=== PATIENT | female | born 1930 | race Caucasian/White ===

== ENCOUNTER 2016-08-03 00:10 | Emergency (ER) | payer MEDICARE, MEDICAID ==
--- NOTE | 2016-08-03 00:42 | ED ---
Nette Jamison Rebecca, scribed for Michael See MD on 08/03/16 at 0018 . Syncope/Near Syncope - HPI Summary HPI Summary: Pt is an 85 y/o F BIBA who presents to ED s/p near syncopal episode. Pt was in the bathroom at 2345 tonight, when suddenly she states she "just didn't feel like my normal self" and proceeded to lay herself on the floor. Reports that her sx are improving from onset. Sx aggravated by nothing, alleviated by spontaneous resolution. Additionally c/o diaphoresis. Denies LOC. Episode was witnessed, as she was with an assistant oceanographer. Pt is a resident at [facility]. PMHx dementia. - History Of Current Complaint Time Seen by Provider: 08/03/16 00:16 Hx Obtained From: Patient, EMS Onset/Duration: Sudden Onset Context: Witnessed Activity At Onset: Other - Urinating Aggravating Factor(s): Nothing Alleviating Factor(s): Spontaneous Resolution Associated Signs And Symptoms: Diaphoresis - Allergies/Home Medications Allergies/Adverse Reactions: Allergies Allergy/AdvReac Type Severity Reaction Status Date / Time Penicillins [PCN] Allergy Severe Rash Verified 04/01/14 21:36 PMH/Surg Hx/FS Hx/Imm Hx Endocrine/Hematology History: Reports: Hx Thyroid Disease Denies: Hx Diabetes Cardiovascular History: Reports: Hx Aneurysm - Sm fusiform aortic [id number] , Hx Hypertension Denies: Hx Congestive Heart Failure, Other Cardiovascular Problems/Disorders Respiratory History: Denies: Other Respiratory Problems/Disorders GI History: Denies: Other GI Disorders History: Denies: Hx Renal Disease, Other Problems/Disorders Neurological History: Reports: Hx Dementia, Hx Headaches Psychiatric History: Reports: Hx Depression Infectious Disease History: No Infectious Disease History: Denies: Traveled Outside the [place] in Last 30 Days - Family History Known Family History: Positive: Cardiac Disease - Social History Alcohol Use: None Substance Use Type: Reports: None Smoking Status (MU): Never Smoked Tobacco Review of Systems Positive: Skin Diaphoresis Positive: Syncope - Near syncopal episode; Negative LOC All Other Systems Reviewed And Are Negative: Yes Physical Exam Triage Information Reviewed: Yes Vital Signs On Initial Exam: Initial Vitals Temp Pulse Resp BP Pulse Ox 98.0 F 66 16 159/66 96 08/03/16 00:15 08/03/16 00:15 08/03/16 00:15 08/03/16 00:15 08/03/16 00:15 Vital Signs Reviewed: Yes Completion Of Physical Exam Limited Due To: Dementia Appearance: Positive: No Pain Distress Skin: Positive: Warm Eyes: Positive: FAUZIA ENT: Positive: Hearing grossly normal Neck: Positive: Supple Respiratory/Lung Sounds: Positive: Clear to Auscultation, Breath Sounds Present Cardiovascular: Positive: RRR Abdomen Description: Positive: Nontender, Soft Bowel Sounds: Positive: Present Musculoskeletal: Positive: Strength/ROM Intact Neurological: Positive: Sensory/Motor Intact Diagnostics - Vital Signs Vital Signs Temp Pulse Resp BP Pulse Ox 08/03/16 00:15 98.0 F 66 16 159/66 96 - Laboratory Result Diagrams: 08/03/16 00:40 08/03/16 00:40 Lab Statement: Any lab studies that have been ordered have been reviewed, and results considered in the medical decision making process. - EKG 0025 Cardiac Rate: NL - 65 bpm EKG Rhythm: Sinus Rhythm ST Segment: Non-Specific - Non-specific T abnormality Course/Dx Assessment/Plan: Pt is an 85 y/o F BIBA who presents to ED s/p near syncopal episode at 2345 tonight. Denies LOC. EKG reveals non-specific T wave abnormalities. Pt will be d/c with a dx of UTI. - Diagnoses Provider Diagnoses: UTI (urinary tract infection) Discharge - Discharge Plan Condition: Stable Disposition: [facility] Prescriptions: Ciprofloxacin TAB* [Cipro Tab*] 250 mg PO BID #14 tab Patient Education Materials: Urinary Tract Infection in Women (ED), Ciprofloxacin (By mouth) Additional Instructions: Recommends Cipro 250 mg 2x per day to treat UTI. The documentation as recorded by the Nette hays Rebecca accurately reflects the service I personally performed and the decisions made by , Michael See MD.
[2016-08-03 00:59] LABS: Hematocrit 40 % (35-47); Hemoglobin 12.9 g/dl (12.0-16.0); Mean Corpuscular HGB Conc 32 g/dl (31-36); Mean Corpuscular Hemoglobin 29 pg (27-31); Mean Corpuscular Volume 90 fL (80-97); Mean Platelet Volume 9 um3 (7.4-10.4); Red Blood Count 4.47 10^6/ul (4.0-5.4); Red Cell Distribution Width 14 % (10.5-15); White Blood Count 12.4 10^3/ul (3.5-10.8)
[2016-08-03 01:15] LABS: ALT 12 U/L (7-52); Albumin 3.9 g/dL (3.2-5.2); Alkaline Phosphatase 35 U/L (34-104); Anion Gap 3 mmol/L (2-11); BUN/Creatinine Ratio 25.7 (8-20); Blood Urea Nitrogen 19 mg/dL (6-24); CO2 Carbon Dioxide 22 mmol/L (22-32); Calcium 8.7 mg/dL (8.6-10.3); Chloride 107 mmol/L (101-111); EGFR African American 95.5 (>60); EGFR Non-African American 74.2 (>60); Globulin 3.9 g/dL (2-4); Glucose 102 mg/dL (70-100); Sodium 132 mmol/L (133-145); Total Protein 7.8 g/dL (6.4-8.9)
[2016-08-03 01:37] LABS: Urine Bacteria 1+ (Absent); Urine Bilirubin Negative (Negative); Urine Glucose Negative (Negative); Urine Nitrite Positive (Negative)
[2016-08-03] MEDS ORDERED: Ciprofloxacin TAB* 250 MG PO ONE (01:42)
[2016-08-03 02:25] VITALS: BP 100/75
--- NOTE | 2016-08-05 08:15 | ED ---
Progress - Progress Note Progress Note: Pt's prelim urine cx reveals e. coli - she was d/c'd on cipro which is appropriate at this time. Will review final cx w/ sens to decide if med change is necessary. Course/Dx - Diagnoses Provider Diagnoses: UTI (urinary tract infection)
--- NOTE | 2016-08-06 07:51 | PN ---
Progress Note - Progress Note Note: Patient d/c on Cipro which is appropriate according to sensitivities.
== END 2016-08-03 02:06 ==
LOC: ED 00:10
DX: N39.0 Urinary tract infection, site not specified (principal); R55 Syncope and collapse; R61 Generalized hyperhidrosis; Z86.59 Personal history of other mental and behavioral disorders
CPT/HCPCS: 36415; 80053; 81003; 81015; 85025; 87077; 87086; 87186; 93005; 99283; A9270-GY

== ENCOUNTER 2016-09-17 13:53 | Inpatient (IN) | payer MEDICARE, MEDICAID ==
[2016-09-17] MEDS ORDERED: NS 0.9% 1000 ML* 2,000 ML IV ONE (14:39)
--- NOTE | 2016-09-17 15:08 | RAD ---
Indication: Fever, weakness and cough. Single frontal view of the chest performed at 1451 hours was reviewed. Comparison is made with previous exam dated January 03, 2013. No mediastinal shift is noted. Heart is of normal size and configuration. Lung bush appear clear. IMPRESSION: NO ACTIVE CARDIOPULMONARY DISEASE IS NOTED.
[2016-09-17 15:14] LABS: Hematocrit 38 % (35-47); Hemoglobin 12.5 g/dl (12.0-16.0); Mean Corpuscular HGB Conc 33 g/dl (31-36); Mean Corpuscular Hemoglobin 29 pg (27-31); Mean Corpuscular Volume 87 fL (80-97); Mean Platelet Volume 8 um3 (7.4-10.4); Red Blood Count 4.38 10^6/ul (4.0-5.4); Red Cell Distribution Width 14 % (10.5-15); White Blood Count 5.1 10^3/ul (3.5-10.8)
[2016-09-17 15:32] LABS: ALT 9 U/L (7-52); AST 14 U/L (13-39); Albumin 3.6 g/dL (3.2-5.2); Alkaline Phosphatase 45 U/L (34-104); Anion Gap 7 mmol/L (2-11); Blood Urea Nitrogen 13 mg/dL (6-24); C Reactive Protein 9.35 mg/L (< 5.00); CO2 Carbon Dioxide 25 mmol/L (22-32); Calcium 8.5 mg/dL (8.6-10.3); Chloride 101 mmol/L (101-111); Creatine Kinase 88 U/L (10-223); EGFR African American 110.9 (>60); EGFR Non-African American 86.2 (>60); Globulin 3.7 g/dL (2-4); Glucose 100 mg/dL (70-100); Potassium 3.9 mmol/L (3.5-5.0); Sodium 133 mmol/L (133-145); Total Protein 7.3 g/dL (6.4-8.9)
[2016-09-17 15:33] LABS: Troponin I 0.02 ng/mL (<0.04)
[2016-09-17 15:59] LABS: Acetaminophen < 15 mcg/mL
[2016-09-17 16:07] LABS: TSH (Thyroid Stimulating Horm) 1.82 mcIU/mL (0.34-5.60)
[2016-09-17] MEDS ORDERED: Acetaminophen TAB* 325 MG PO ONE (16:13)
[2016-09-17] MEDS ORDERED: Oseltamivir CAP* 75 MG PO ONE (16:38)
[2016-09-17] MEDS ORDERED: Senna TAB PO PRN (16:39)
[2016-09-17] MEDS ORDERED: Magnesium Hydroxide LIQ* 30 ML UDC PO PRN (16:39)
[2016-09-17] MEDS ORDERED: Docusate CAP* 100 MG PO PRN (16:39)
[2016-09-17] MEDS ORDERED: NS 0.9% 1000 ML* 1,000 ML IV SCH (16:45)
[2016-09-17 16:55] LABS: Urine Bilirubin Negative (Negative); Urine Glucose Negative (Negative); Urine Nitrite Negative (Negative)
--- NOTE | 2016-09-17 17:04 | ED ---
Quentin Jamison Billy, scribed for Lake Rodgers MD on 09/17/16 at 1436 . Complex/Multi-Sys Presentation - HPI Summary HPI Summary: Patient is an 85 year-old female BIBA to [facility] from [facility] for evaluation of an unwitnessed fall earlier today. She denies any headache or neck pain at this time. She has a fever but denies feeling feverish. Denies any abdominal pain, nausea, vomiting, or diarrhea. She reports increased urinary frequency without dysuria. Daughter states that the patient's voice sounds hoarse, but patient denies having a sore throat. She does not recall falling or having any LOC today. Denies pain in the extremities. - History Of Current Complaint Chief Complaint: EDGeneral Time Seen by Provider: 09/17/16 14:17 Hx Obtained From: Patient, Family/Row Boss Onset/Duration: Sudden Onset Timing: Intermittent, Lasting: Severity Currently: Moderate Aggravating Factor(s): none Alleviating Factor(s): none Associated Signs And Symptoms: Positive: Cough, Fever, Other - increased urinary frequency. Negative: Syncope, Headache, Nausea, Vomiting, Diarrhea, Abdominal Pain, Dysuria - Allergies/Home Medications Allergies/Adverse Reactions: Allergies Allergy/AdvReac Type Severity Reaction Status Date / Time Penicillins [PCN] Allergy Severe Rash Verified 04/01/14 21:36 Home Medications: Home Medications Cholecalciferol [Vitamin D3] 50,000 unit PO MONTHLY 09/17/16 [History Confirmed 09/17/16] Cranberry-Vitamin C-Probiotic- [Gnp Cranberry] 1 tab PO DAILY 09/17/16 [History Confirmed 09/17/16] Escitalopram (NF) [Lexapro (NF)] 20 mg PO DAILY 09/17/16 [History Confirmed ] LORazepam TAB(*) [Ativan 0.5 MG TAB (*)] 0.5 mg PO DAILY PRN 09/17/16 [History Confirmed 09/17/16] Magnesium Hydroxide LIQ* [Milk of Magnesia LIQ*] 30 ml PO DAILY PRN 09/17/16 [ History Confirmed 09/17/16] Senna TAB* [Senokot TAB*] 2 tab PO DAILY PRN 09/17/16 [History Confirmed ] Trospium (NF) [Sanctura (NF)] 20 mg PO DAILY 09/17/16 [History Confirmed ] PMH/Surg Hx/FS Hx/Imm Hx Endocrine/Hematology History: Reports: Hx Thyroid Disease Denies: Hx Diabetes Cardiovascular History: Reports: Hx Aneurysm - Sm fusiform aortic [id number] , Hx Hypertension Denies: Hx Congestive Heart Failure, Other Cardiovascular Problems/Disorders Respiratory History: Denies: Other Respiratory Problems/Disorders GI History: Denies: Other GI Disorders History: Denies: Hx Renal Disease, Other Problems/Disorders Neurological History: Reports: Hx Dementia, Hx Headaches Psychiatric History: Reports: Hx Depression Infectious Disease History: Denies: Traveled Outside the US in Last 30 Days - Family History Known Family History: Positive: Cardiac Disease - Social History Alcohol Use: None Substance Use Type: Reports: None Smoking Status (MU): Never Smoked Tobacco Review of Systems Positive: Fever Positive: Other - hoarse voice. Negative: Sore Throat Positive: Cough Negative: Abdominal Pain, Vomiting, Diarrhea, Nausea Positive: frequency. Negative: dysuria Negative: Headache All Other Systems Reviewed And Are Negative: Yes Physical Exam Triage Information Reviewed: Yes Vital Signs On Initial Exam: Initial Vitals Temp Pulse Resp BP Pulse Ox 100.4 F 85 22 120/73 91 09/17/16 14:02 09/17/16 14:02 09/17/16 14:02 09/17/16 14:02 09/17/16 14:02 Vital Signs Reviewed: Yes Appearance: Positive: Well-Appearing, No Pain Distress Skin: Positive: Warm, Skin Color Reflects Adequate Perfusion, Dry Head/Face: Positive: Normal Head/Face Inspection Eyes: Positive: EOMI, FAUZIA ENT: Positive: Other - dry oral mucosa Neck: Positive: Supple, Nontender Respiratory/Lung Sounds: Positive: Wheezes - bilateral lung bases Cardiovascular: Positive: RRR, Murmur Abdomen Description: Positive: Nontender, Soft Bowel Sounds: Positive: Present Musculoskeletal: Positive: Normal, Strength/ROM Intact Neurological: Positive: Normal, Sensory/Motor Intact, Alert, Oriented to Person Place, Time Psychiatric: Positive: Normal, Affect/Mood Appropriate AVPU Assessment: Alert Diagnostics - Vital Signs Vital Signs Temp Pulse Resp BP Pulse Ox 09/17/16 14:02 100.4 F 85 22 120/73 91 - Laboratory Lab Results: Lab Results 09/17/16 09/17/16 09/17/16 Range/Units 15:05 15:05 15:05 WBC 5.1 (3.5-10.8) 10^3/ul RBC 4.38 (4.0-5.4) 10^6/ul Hgb 12.5 (12.0-16.0) g/dl Hct 38 (35-47) % MCV 87 (80-97) fL MCH 29 (27-31) pg MCHC 33 (31-36) g/dl RDW 14 (10.5-15) % Plt Count 160 (150-450) 10^3/ul MPV 8 (7.4-10.4) um3 Neut % (Auto) 70.4 (38-83) % Lymph % (Auto) 13.6 L (25-47) % Hart % (Auto) 13.6 H (1-9) % Eos % (Auto) 1.4 (0-6) % Baso % (Auto) 1.0 (0-2) % Absolute Neuts (auto) 3.6 (1.5-7.7) 10^3/ul Absolute Lymphs (auto) 0.7 L (1.0-4.8) 10^3/ul Absolute Monos (auto) 0.7 (0-0.8) 10^3/ul Absolute Eos (auto) 0.1 (0-0.6) 10^3/ul Absolute Basos (auto) 0.1 (0-0.2) 10^3/ul Absolute Nucleated RBC 0 10^3/ul Nucleated RBC % 0 INR (Anticoag Therapy) 1.02 (0.89-1.11) APTT 33.8 (26.0-36.3) seconds Sodium 133 (133-145) mmol/L Potassium 3.9 (3.5-5.0) mmol/L Chloride 101 (101-111) mmol/L Carbon Dioxide 25 (22-32) mmol/L Anion Gap 7 (2-11) mmol/L BUN 13 (6-24) mg/dL Creatinine 0.65 (0.51-0.95) mg/dL Est GFR ( Amer) 110.9 (>60) Est GFR (Non-Af Amer) 86.2 (>60) BUN/Creatinine Ratio 20.0 (8-20) Glucose 100 (70-100) mg/dL Lactic Acid (0.5-2.0) mmol/L Calcium 8.5 L (8.6-10.3) mg/dL Magnesium 2.0 (1.9-2.7) mg/dL Total Bilirubin 0.60 (0.2-1.0) mg/dL AST 14 (13-39) U/L ALT 9 (7-52) U/L Alkaline Phosphatase 45 (34-104) U/L Total Creatine Kinase 88 (10-223) U/L CK-MB (CK-2) 1.4 (0.6-6.3) ng/mL Troponin I 0.02 (<0.04) ng/mL C-Reactive Protein 9.35 H (< 5.00) mg/L B-Natriuretic Peptide ( - 100) pg/mL Total Protein 7.3 (6.4-8.9) g/dL Albumin 3.6 (3.2-5.2) g/dL Globulin 3.7 (2-4) g/dL Albumin/Globulin Ratio 1.0 (1-3) TSH 1.82 (0.34-5.60) mcIU/mL Urine Color Urine Appearance Urine pH (5-9) Ur Specific [place] (1.010-1.030) Urine Protein (Negative) Urine Ketones (Negative) Urine Blood (Negative) Urine Nitrate (Negative) Urine Bilirubin (Negative) Urine Urobilinogen (Negative) Ur Leukocyte Esterase (Negative) Urine Glucose (Negative) Acetaminophen < 15 mcg/mL Influenza A (Rapid) (Negative) Influenza B (Rapid) (Negative) 09/17/16 09/17/16 09/17/16 Range/Units 15:05 15:05 15:21 WBC (3.5-10.8) 10^3/ul RBC (4.0-5.4) 10^6/ul Hgb (12.0-16.0) g/dl Hct (35-47) % MCV (80-97) fL MCH (27-31) pg MCHC (31-36) g/dl RDW (10.5-15) % Plt Count (150-450) 10^3/ul MPV (7.4-10.4) um3 Neut % (Auto) (38-83) % Lymph % (Auto) (25-47) % Hart % (Auto) (1-9) % Eos % (Auto) (0-6) % Baso % (Auto) (0-2) % Absolute Neuts (auto) (1.5-7.7) 10^3/ul Absolute Lymphs (auto) (1.0-4.8) 10^3/ul Absolute Monos (auto) (0-0.8) 10^3/ul Absolute Eos (auto) (0-0.6) 10^3/ul Absolute Basos (auto) (0-0.2) 10^3/ul Absolute Nucleated RBC 10^3/ul Nucleated RBC % INR (Anticoag Therapy) (0.89-1.11) APTT (26.0-36.3) seconds Sodium (133-145) mmol/L Potassium (3.5-5.0) mmol/L Chloride (101-111) mmol/L Carbon Dioxide (22-32) mmol/L Anion Gap (2-11) mmol/L BUN (6-24) mg/dL Creatinine (0.51-0.95) mg/dL Est GFR ( Amer) (>60) Est GFR (Non-Af Amer) (>60) BUN/Creatinine Ratio (8-20) Glucose (70-100) mg/dL Lactic Acid 0.8 (0.5-2.0) mmol/L Calcium (8.6-10.3) mg/dL Magnesium (1.9-2.7) mg/dL Total Bilirubin (0.2-1.0) mg/dL AST (13-39) U/L ALT (7-52) U/L Alkaline Phosphatase (34-104) U/L Total Creatine Kinase (10-223) U/L CK-MB (CK-2) (0.6-6.3) ng/mL Troponin I (<0.04) ng/mL C-Reactive Protein (< 5.00) mg/L B-Natriuretic Peptide 275 H ( - 100) pg/mL Total Protein (6.4-8.9) g/dL Albumin (3.2-5.2) g/dL Globulin (2-4) g/dL Albumin/Globulin Ratio (1-3) TSH (0.34-5.60) mcIU/mL Urine Color Urine Appearance Urine pH (5-9) Ur Specific [place] (1.010-1.030) Urine Protein (Negative) Urine Ketones (Negative) Urine Blood (Negative) Urine Nitrate (Negative) Urine Bilirubin (Negative) Urine Urobilinogen (Negative) Ur Leukocyte Esterase (Negative) Urine Glucose (Negative) Acetaminophen mcg/mL Influenza A (Rapid) Positive H (Negative) Influenza B (Rapid) Negative (Negative) 09/17/16 Range/Units 16:40 WBC (3.5-10.8) 10^3/ul RBC (4.0-5.4) 10^6/ul Hgb (12.0-16.0) g/dl Hct (35-47) % MCV (80-97) fL MCH (27-31) pg MCHC (31-36) g/dl RDW (10.5-15) % Plt Count (150-450) 10^3/ul MPV (7.4-10.4) um3 Neut % (Auto) (38-83) % Lymph % (Auto) (25-47) % Hart % (Auto) (1-9) % Eos % (Auto) (0-6) % Baso % (Auto) (0-2) % Absolute Neuts (auto) (1.5-7.7) 10^3/ul Absolute Lymphs (auto) (1.0-4.8) 10^3/ul Absolute Monos (auto) (0-0.8) 10^3/ul Absolute Eos (auto) (0-0.6) 10^3/ul Absolute Basos (auto) (0-0.2) 10^3/ul Absolute Nucleated RBC 10^3/ul Nucleated RBC % INR (Anticoag Therapy) (0.89-1.11) APTT (26.0-36.3) seconds Sodium (133-145) mmol/L Potassium (3.5-5.0) mmol/L Chloride (101-111) mmol/L Carbon Dioxide (22-32) mmol/L Anion Gap (2-11) mmol/L BUN (6-24) mg/dL Creatinine (0.51-0.95) mg/dL Est GFR ( Amer) (>60) Est GFR (Non-Af Amer) (>60) BUN/Creatinine Ratio (8-20) Glucose (70-100) mg/dL Lactic Acid (0.5-2.0) mmol/L Calcium (8.6-10.3) mg/dL Magnesium (1.9-2.7) mg/dL Total Bilirubin (0.2-1.0) mg/dL AST (13-39) U/L ALT (7-52) U/L Alkaline Phosphatase (34-104) U/L Total Creatine Kinase (10-223) U/L CK-MB (CK-2) (0.6-6.3) ng/mL Troponin I (<0.04) ng/mL C-Reactive Protein (< 5.00) mg/L B-Natriuretic Peptide ( - 100) pg/mL Total Protein (6.4-8.9) g/dL Albumin (3.2-5.2) g/dL Globulin (2-4) g/dL Albumin/Globulin Ratio (1-3) TSH (0.34-5.60) mcIU/mL Urine Color Yellow Urine Appearance Cloudy Urine pH 6.0 (5-9) Ur Specific [place] 1.012 (1.010-1.030) Urine Protein Negative (Negative) Urine Ketones Negative (Negative) Urine Blood Negative (Negative) Urine Nitrate Negative (Negative) Urine Bilirubin Negative (Negative) Urine Urobilinogen Negative (Negative) Ur Leukocyte Esterase Negative (Negative) Urine Glucose Negative (Negative) Acetaminophen mcg/mL Influenza A (Rapid) (Negative) Influenza B (Rapid) (Negative) Result Diagrams: 09/17/16 15:05 09/17/16 15:05 Lab Statement: Any lab studies that have been ordered have been reviewed, and results considered in the medical decision making process. - Radiology CXR Xray Interpretation: No Acute Changes Radiology Interpretation Completed By: Radiologist Complex Multi-Symp Course/Dx Assessment/Plan: ADMIT HOSPITALIST STABLE. - Diagnoses Provider Diagnoses: Influenza, Weakness - Physician Notifications Discussed Care Of Patient With: Dr. Reich (hospitalist) @ [id number]: accepts admission. Discharge - Discharge Plan Condition: Stable Disposition: ADMITTED TO [facility] Referrals: Alba Johnson MD [Primary Care Provider] - The documentation as recorded by the Quentin hays Billy accurately reflects the service I personally performed and the decisions made by , Lake Rodgers MD.
--- NOTE | 2016-09-17 17:23 | RAD ---
INDICATION: Trauma, history of Alzheimer's disease. COMPARISON: Comparison is made with a prior CT of the brain from July 10 2013. TECHNIQUE: Contiguous axial sections of the brain were obtained from the skull base to the vertex without contrast. FINDINGS: The ventricles, cisterns and sulci are enlarged consistent with diffuse atrophy. There are small areas of decreased density in the subcortical and periventricular white matter suggestive of mild chronic small vessel ischemic changes. No other focal abnormality or mass effect is seen. There is no evidence for hemorrhage. No significant focal osseous abnormality is seen. The visualized portion of the paranasal sinuses and mastoid air cells appear clear. IMPRESSION: 1. NO EVIDENCE FOR ACUTE INTRACRANIAL ABNORMALITY. 2. ATROPHY AND FINDINGS CONSISTENT WITH MILD CHRONIC SMALL VESSEL ISCHEMIC CHANGES.
--- NOTE | 2016-09-17 17:39 | RAD ---
INDICATION: Trauma. COMPARISON: Comparison is made with a prior CT of the cervical spine from June 17, 2013. TECHNIQUE: Contiguous axial sections were obtained from the skull base through the T4 vertebra. Images were reconstructed in the sagittal and coronal planes. FINDINGS: There is mild retrolisthesis of C5 relative to C6 which is unchanged from the prior exam which appears to be degenerative in origin. No prevertebral soft tissue swelling or fracture is seen. The C3-C4 level there is posterior uncinate process spurring and mild/moderate hypertrophic changes within the facet joints. No significant spinal canal narrowing is present. There is mild neural foraminal narrowing on the right side and moderate neural frontal narrowing on the left side. At the C4-C5 level there is mild posterior uncinate process spurring associated with a mild broad-based disc bulge. No spinal canal narrowing is present. There is mild neural foraminal narrowing on the right side. At the C5-C6 level there is mild retrolisthesis of C5 relative the C6 of approximately 2 mm which is unchanged from the prior exam. There is mild/moderate posterior uncinate process spurring. There is mild spinal canal narrowing and mild to moderate bilateral neural foraminal narrowing. At the C6-C7 level there is mild posterior uncinate process spurring. No significant spinal canal narrowing is present. There is mild bilateral neural foraminal narrowing. IMPRESSION: 1. NO EVIDENCE FOR FRACTURE. 2. MILD TO MODERATE CERVICAL SPONDYLOSIS.
[2016-09-17] MEDS: GuaiFENesin DM* 5 ML UDC PO PRN (23:57)
[2016-09-17] MEDS: Acetaminophen TAB* 325 MG PO PRN (23:57)
[2016-09-17] MEDS: Oseltamivir CAP* 75 MG PO SCH (23:58)
[2016-09-17] MEDS: Heparin VIAL(*) 5000 UNITS/ML VIAL (FIVE THOUSAND) SUBCUT SCH (23:58)
--- NOTE | 2016-09-18 00:18 | HP ---
CC: Alba Johnson MD HISTORY AND PHYSICAL: DATE OF ADMISSION: 09/17/16 PRIMARY CARE PROVIDER: Alba Johnson MD CHIEF COMPLAINT: Status post fall. HISTORY OF PRESENT ILLNESS: Em Arango is an 85-year-old female with history of significant oz ia who lives at [facility]. Today she was found after she fell in her room. The patient herself stated that she tripped and fell, but I am not really sure if she would remembe r this event. She has no significant abrasions or trauma. She was noted to have temperature of 100 .4 and her influenza test was positive for influenza A. The patient is going to be placed on observ ation with diagnosis of influenza A. Please note that the patient is a very poor historian and most of the history was obtained from [facility] records. PAST MEDICAL HISTORY: 1. Alzheimer's dementia. 2. History of vertigo and unsteady gait. 3. Hypothyroidism. 4. Depression. OUTPATIENT MEDICATIONS: Include: 1. Vitamin D3 50,000 units monthly. 2. Cranberry 1 tablet daily. 3. Colace 200 mg daily p.r.n. 4. Aricept 10 mg daily. 5. Lexapro 20 mg daily. 6. Lorazepam 0.5 mg daily p.r.n. 7. Levothyroxine 50 mcg daily. 8. Sanctura 20 mg daily. FAMILY HISTORY: Coronary artery disease in both parents, in their 70s. SOCIAL HISTORY: The patient has no history of tobacco, alcohol, or drug use. REVIEW OF SYSTEMS: The patient has no complaints. Denies any headaches or fevers. She stated that she did not hurt herself after she fell. She is a very poor historian. All the remaining 14 systems were reviewed with the patient and were otherwise negative. PHYSICAL EXAMINATION GENERAL: The patient is a very pleasant 85-year-old female who is disoriented to place. She cannot tell me how old she is. At present, cooperative with evaluation. VITAL SIGNS: Blood pressure 146/64, heart rate of 81 and regular, respiratory rate of 23, oxygen sa turation 94% on room air, and temperature of 100.4. HEENT: Head: Atraumatic, normocephalic. Eyes: Pupils equal and reactive to light and accommodati on. Oropharynx clear. Mucosa moist. NECK: Supple. No JVD. No bruits bilaterally. RESPIRATORY: Clear to auscultation bilaterally. CARDIOVASCULAR: Regular rate and rhythm with 3/6 systolic ejection murmur, more clear on auscultati on of the left upper sternal border. ABDOMEN: Soft and nontender. Bowel sound present in all 4 quadrants. EXTREMITIES: There is no edema. Pulses present 2+ bilaterally. No clubbing or cyanosis. SKIN: On evaluation of skin, no ecchymotic areas or rashes. NEUROLOGIC: Speech clear. Cranial nerves II through XII are grossly intact. Motor strength is 5/5 bilaterally. DIAGNOSTIC STUDIES/LAB DATA: White blood cell count of 5.1, hemoglobin 12.5, hematocrit 38, and pl atelets of 160. Sodium of 133, potassium 3.9, chloride 101, carbon dioxide 25, BUN 30, and creatinine 0.65. C-react st[place] protein was 9.3. TSH of 1.8. Urinalysis was grossly negative. Serologies were positive for influenza A. Brain CT, impression: "No evidence of acute intracranial abnormality. Atrophy and findings consist ent with mild chronic small vessel ischemic changes." C-spine CT, impression: "No evidence of fracture. [id number] cervical spondylosis." Chest x-ray impression: "No active cardiopulmonary disease is noted." ASSESSMENT AND PLAN: Ms. Arango is an 85-year-old female with history of dementia and hypothyroidis m who fell in her assisted living facility. 1. The patient is going to be placed on overnight observation with a diagnosis of influenza A. At this point, the patient actually appears to be nontoxic and feeling very well. She is going to be p laced on gentle hydration overnight as well as Tamiflu is going to be started. 2. In regards to her hypothyroidism, her Synthroid dose is correct and she is going to be continued on the outpatient dose. 3. In regards to patient's overactive bladder, her home medication is not available and that is goi ng to be replaced with Ditropan when in the hospital. 4. For dementia, Aricept is going to be continued. 5. For DVT prophylaxis, the patient is going to be placed on heparin subcutaneously. 6. Code status: Full. 7. The patient's surrogate decision maker and health care proxy is Michael Arango, the patient's son. TIME SPENT: Approximately 55 minutes was spent on admission of this patient; more than half of the time was spent [id number] with the patient during the interview and physical exam. [id number]/[facility] #: [id number]
[2016-09-18] MEDS: GuaiFENesin DM* 5 ML UDC PO PRN (05:59)
[2016-09-18] MEDS: Levothyroxine TAB* 50 MCG TAB PO SCH (06:00)
[2016-09-18] MEDS: Acetaminophen TAB* 325 MG PO PRN (06:00)
[2016-09-18] MEDS: Heparin VIAL(*) 5000 UNITS/ML VIAL (FIVE THOUSAND) SUBCUT SCH ×3 (06:00→20:41)
[2016-09-18] MEDS: Oseltamivir CAP* 75 MG PO SCH ×2 (08:07→20:41)
[2016-09-18] MEDS: Donepezil TAB* 5 MG PO SCH (08:07)
[2016-09-18] MEDS: Oxybutynin TAB* 5 MG PO SCH (08:08)
[2016-09-18] MEDS: CMCS: Escitalopram (NF) 10 MG TAB PO SCH (08:08)
--- NOTE | 2016-09-18 12:28 | PN ---
Subjective Date of Service: 09/18/16 Interval History: pt thought she was [place] post [place]. Pleasantly confused. Required 2 person assist to the bathroom. No complaints. Objective Active Medications: Acetaminophen (Tylenol Tab*) 325 mg PO Q6H PRN PRN Reason: HEADACHE/PAIN Last Admin: 09/18/16 06:00 Dose: 325 mg Docusate Sodium (Colace Cap*) 200 mg PO DAILY PRN PRN Reason: CONSTIPATION Donepezil HCl (Aricept Tab*) 10 mg PO DAILY [facility] Last Admin: 09/18/16 08:07 Dose: 10 mg Escitalopram Oxalate (Lexapro (Nf)) 20 mg PO DAILY [facility] Last Admin: 09/18/16 08:08 Dose: 20 mg Guaifenesin/Dextromethorphan (Robitussin Dm*) 5 ml PO Q6H PRN PRN Reason: COUGH Last Admin: 09/18/16 05:59 Dose: 5 ml Heparin Sodium (Porcine) (Heparin Vial(*)) 5,000 units SUBCUT Q8HR [facility] Last Admin: 09/18/16 06:00 Dose: 5,000 units Levothyroxine Sodium (Synthroid Tab*) 50 mcg PO DAILY@0600 [facility] Last Admin: 09/18/16 06:00 Dose: 50 mcg Lorazepam (Ativan Tab(*)) 0.5 mg PO DAILY PRN PRN Reason: ANXIETY Magnesium Hydroxide (Milk Of Magnesia Liq*) 30 ml PO DAILY PRN PRN Reason: CONSTIPATION Oseltamivir Phosphate (Tamiflu Cap*) 75 mg PO BID [facility] Stop: 09/22/16 09:01 Last Admin: 09/18/16 08:07 Dose: 75 mg Oxybutynin Chloride (Ditropan Tab*) 5 mg PO DAILY [facility] Last Admin: 09/18/16 08:08 Dose: 5 mg Senna (Senokot Tab*) 2 tab PO DAILY PRN PRN Reason: CONSTIPATION Vital Signs 09/17/16 09/17/16 09/17/16 17:10 18:17 20:00 Temperature 99.9 F Pulse Rate 84 76 Respiratory 23 20 18 Rate Blood Pressure 133/56 (mmHg) O2 Sat by Pulse 93 94 Oximetry 09/18/16 09/18/16 09/18/16 01:16 03:00 08:00 Temperature 98.7 F Pulse Rate 75 Respiratory 16 18 16 Rate Blood Pressure 162/47 (mmHg) O2 Sat by Pulse 93 Oximetry 09/18/16 08:01 Temperature 98.0 F Pulse Rate 68 Respiratory 15 Rate Blood Pressure 143/41 (mmHg) O2 Sat by Pulse 93 Oximetry Oxygen Devices in Use Now: None Appearance: 85 yo F in NAD, oriented to self only, pleasant and conversational, able to follow commands Eyes: No Scleral Icterus, PERRLA Ears/Nose/Mouth/Throat: NL Teeth, Lips, Gums, Mucous Membranes Moist Neck: NL Appearance and Movements; NL JVP, Trachea Midline Respiratory: Symmetrical Chest Expansion and Respiratory Effort, Clear to Auscultation Cardiovascular: RRR, - - 2/6 HANK Abdominal: NL Sounds; No Tenderness; No Distention, No Hepatosplenomegaly Lymphatic: No Cervical Adenopathy Extremities: No Edema, No Clubbing, Cyanosis Skin: No Rash or Ulcers, No Nodules or Sclerosis Neurological: NL Muscle Strength and Tone Result Diagrams: 09/17/16 15:05 09/17/16 15:05 Additional Lab and Data: Lab Results 09/17/16 09/17/16 09/17/16 Range/Units 15:05 15:05 15:05 WBC 5.1 (3.5-10.8) 10^3/ul RBC 4.38 (4.0-5.4) 10^6/ul Hgb 12.5 (12.0-16.0) g/dl Hct 38 (35-47) % MCV 87 (80-97) fL MCH 29 (27-31) pg MCHC 33 (31-36) g/dl RDW 14 (10.5-15) % Plt Count 160 (150-450) 10^3/ul MPV 8 (7.4-10.4) um3 Neut % (Auto) 70.4 (38-83) % Lymph % (Auto) 13.6 L (25-47) % Brooks % (Auto) 13.6 H (1-9) % Eos % (Auto) 1.4 (0-6) % Baso % (Auto) 1.0 (0-2) % Absolute Neuts (auto) 3.6 (1.5-7.7) 10^3/ul Absolute Lymphs (auto) 0.7 L (1.0-4.8) 10^3/ul Absolute Monos (auto) 0.7 (0-0.8) 10^3/ul Absolute Eos (auto) 0.1 (0-0.6) 10^3/ul Absolute Basos (auto) 0.1 (0-0.2) 10^3/ul Absolute Nucleated RBC 0 10^3/ul Nucleated RBC % 0 INR (Anticoag Therapy) 1.02 (0.89-1.11) APTT 33.8 (26.0-36.3) seconds Sodium 133 (133-145) mmol/L Potassium 3.9 (3.5-5.0) mmol/L Chloride 101 (101-111) mmol/L Carbon Dioxide 25 (22-32) mmol/L Anion Gap 7 (2-11) mmol/L BUN 13 (6-24) mg/dL Creatinine 0.65 (0.51-0.95) mg/dL Est GFR ( Amer) 110.9 (>60) Est GFR (Non-Af Amer) 86.2 (>60) BUN/Creatinine Ratio 20.0 (8-20) Glucose 100 (70-100) mg/dL Lactic Acid (0.5-2.0) mmol/L Calcium 8.5 L (8.6-10.3) mg/dL Magnesium 2.0 (1.9-2.7) mg/dL Total Bilirubin 0.60 (0.2-1.0) mg/dL AST 14 (13-39) U/L ALT 9 (7-52) U/L Alkaline Phosphatase 45 (34-104) U/L Total Creatine Kinase 88 (10-223) U/L CK-MB (CK-2) 1.4 (0.6-6.3) ng/mL Troponin I 0.02 (<0.04) ng/mL C-Reactive Protein 9.35 H (< 5.00) mg/L B-Natriuretic Peptide ( - 100) pg/mL Total Protein 7.3 (6.4-8.9) g/dL Albumin 3.6 (3.2-5.2) g/dL Globulin 3.7 (2-4) g/dL Albumin/Globulin Ratio 1.0 (1-3) TSH 1.82 (0.34-5.60) mcIU/mL Urine Color Urine Appearance Urine pH (5-9) Ur Specific [place] (1.010-1.030) Urine Protein (Negative) Urine Ketones (Negative) Urine Blood (Negative) Urine Nitrate (Negative) Urine Bilirubin (Negative) Urine Urobilinogen (Negative) Ur Leukocyte Esterase (Negative) Urine Glucose (Negative) Acetaminophen < 15 mcg/mL Influenza A (Rapid) (Negative) Influenza B (Rapid) (Negative) 09/17/16 09/17/16 09/17/16 Range/Units 15:05 15:05 15:21 WBC (3.5-10.8) 10^3/ul RBC (4.0-5.4) 10^6/ul Hgb (12.0-16.0) g/dl Hct (35-47) % MCV (80-97) fL MCH (27-31) pg MCHC (31-36) g/dl RDW (10.5-15) % Plt Count (150-450) 10^3/ul MPV (7.4-10.4) um3 Neut % (Auto) (38-83) % Lymph % (Auto) (25-47) % Brooks % (Auto) (1-9) % Eos % (Auto) (0-6) % Baso % (Auto) (0-2) % Absolute Neuts (auto) (1.5-7.7) 10^3/ul Absolute Lymphs (auto) (1.0-4.8) 10^3/ul Absolute Monos (auto) (0-0.8) 10^3/ul Absolute Eos (auto) (0-0.6) 10^3/ul Absolute Basos (auto) (0-0.2) 10^3/ul Absolute Nucleated RBC 10^3/ul Nucleated RBC % INR (Anticoag Therapy) (0.89-1.11) APTT (26.0-36.3) seconds Sodium (133-145) mmol/L Potassium (3.5-5.0) mmol/L Chloride (101-111) mmol/L Carbon Dioxide (22-32) mmol/L Anion Gap (2-11) mmol/L BUN (6-24) mg/dL Creatinine (0.51-0.95) mg/dL Est GFR ( Amer) (>60) Est GFR (Non-Af Amer) (>60) BUN/Creatinine Ratio (8-20) Glucose (70-100) mg/dL Lactic Acid 0.8 (0.5-2.0) mmol/L Calcium (8.6-10.3) mg/dL Magnesium (1.9-2.7) mg/dL Total Bilirubin (0.2-1.0) mg/dL AST (13-39) U/L ALT (7-52) U/L Alkaline Phosphatase (34-104) U/L Total Creatine Kinase (10-223) U/L CK-MB (CK-2) (0.6-6.3) ng/mL Troponin I (<0.04) ng/mL C-Reactive Protein (< 5.00) mg/L B-Natriuretic Peptide 275 H ( - 100) pg/mL Total Protein (6.4-8.9) g/dL Albumin (3.2-5.2) g/dL Globulin (2-4) g/dL Albumin/Globulin Ratio (1-3) TSH (0.34-5.60) mcIU/mL Urine Color Urine Appearance Urine pH (5-9) Ur Specific [place] (1.010-1.030) Urine Protein (Negative) Urine Ketones (Negative) Urine Blood (Negative) Urine Nitrate (Negative) Urine Bilirubin (Negative) Urine Urobilinogen (Negative) Ur Leukocyte Esterase (Negative) Urine Glucose (Negative) Acetaminophen mcg/mL Influenza A (Rapid) Positive H (Negative) Influenza B (Rapid) Negative (Negative) 09/17/16 Range/Units 16:40 WBC (3.5-10.8) 10^3/ul RBC (4.0-5.4) 10^6/ul Hgb (12.0-16.0) g/dl Hct (35-47) % MCV (80-97) fL MCH (27-31) pg MCHC (31-36) g/dl RDW (10.5-15) % Plt Count (150-450) 10^3/ul MPV (7.4-10.4) um3 Neut % (Auto) (38-83) % Lymph % (Auto) (25-47) % Brooks % (Auto) (1-9) % Eos % (Auto) (0-6) % Baso % (Auto) (0-2) % Absolute Neuts (auto) (1.5-7.7) 10^3/ul Absolute Lymphs (auto) (1.0-4.8) 10^3/ul Absolute Monos (auto) (0-0.8) 10^3/ul Absolute Eos (auto) (0-0.6) 10^3/ul Absolute Basos (auto) (0-0.2) 10^3/ul Absolute Nucleated RBC 10^3/ul Nucleated RBC % INR (Anticoag Therapy) (0.89-1.11) APTT (26.0-36.3) seconds Sodium (133-145) mmol/L Potassium (3.5-5.0) mmol/L Chloride (101-111) mmol/L Carbon Dioxide (22-32) mmol/L Anion Gap (2-11) mmol/L BUN (6-24) mg/dL Creatinine (0.51-0.95) mg/dL Est GFR ( Amer) (>60) Est GFR (Non-Af Amer) (>60) BUN/Creatinine Ratio (8-20) Glucose (70-100) mg/dL Lactic Acid (0.5-2.0) mmol/L Calcium (8.6-10.3) mg/dL Magnesium (1.9-2.7) mg/dL Total Bilirubin (0.2-1.0) mg/dL AST (13-39) U/L ALT (7-52) U/L Alkaline Phosphatase (34-104) U/L Total Creatine Kinase (10-223) U/L CK-MB (CK-2) (0.6-6.3) ng/mL Troponin I (<0.04) ng/mL C-Reactive Protein (< 5.00) mg/L B-Natriuretic Peptide ( - 100) pg/mL Total Protein (6.4-8.9) g/dL Albumin (3.2-5.2) g/dL Globulin (2-4) g/dL Albumin/Globulin Ratio (1-3) TSH (0.34-5.60) mcIU/mL Urine Color Yellow Urine Appearance Cloudy Urine pH 6.0 (5-9) Ur Specific [place] 1.012 (1.010-1.030) Urine Protein Negative (Negative) Urine Ketones Negative (Negative) Urine Blood Negative (Negative) Urine Nitrate Negative (Negative) Urine Bilirubin Negative (Negative) Urine Urobilinogen Negative (Negative) Ur Leukocyte Esterase Negative (Negative) Urine Glucose Negative (Negative) Acetaminophen mcg/mL Influenza A (Rapid) (Negative) Influenza B (Rapid) (Negative) Microbiology and Other Data: Microbiology 09/18/16 06:00 Nasal Screen MRSA (PCR)(MELVI) - Final Nasal Mrsa Negative Assess/Plan/Problems-Billing Assessment: 85 yo F with h/o dementia, hypothyroidism living in assisted living presented after a fall and was Influenza A positive - Patient Problems (1) Influenza A Comment: with generalized weakness due to it, otherwise asymptomatic. Cont Tamiflu (2) Hypothyroidism Comment: cont synthroid (3) OAB (overactive bladder) Comment: cont Ditropan when hospitalized (4) Dementia Comment: cont Aricept (5) Physical deconditioning Comment: PT/OT eval pending. suspect she will need STR prior to returning to assist living. Required 2 person assist today (6) DVT prophylaxis Comment: heparin sc Status and Disposition: inpatient, due to Influenza a and deconditioning, will most likely need STR.
[2016-09-18] MEDS: LORazepam TAB(*) 0.5 MG PO PRN (19:03)
[2016-09-19] MEDS: Heparin VIAL(*) 5000 UNITS/ML VIAL (FIVE THOUSAND) SUBCUT SCH ×3 (05:51→22:53)
[2016-09-19] MEDS: Levothyroxine TAB* 50 MCG TAB PO SCH (05:51)
[2016-09-19] MEDS: Donepezil TAB* 5 MG PO SCH (07:24)
[2016-09-19] MEDS: CMCS: Escitalopram (NF) 10 MG TAB PO SCH (07:24)
[2016-09-19] MEDS: Oseltamivir CAP* 75 MG PO SCH ×2 (07:25→20:01)
[2016-09-19] MEDS: Oxybutynin TAB* 5 MG PO SCH (07:25)
[2016-09-19] MEDS: Acetaminophen TAB* 325 MG PO PRN (07:33)
[2016-09-19] MEDS: GuaiFENesin DM* 5 ML UDC PO PRN (11:39)
--- NOTE | 2016-09-19 13:30 | PN ---
Subjective Date of Service: 09/19/16 Interval History: pt is not aware of her location, has no complaints Objective Active Medications: Acetaminophen (Tylenol Tab*) 325 mg PO Q6H PRN PRN Reason: HEADACHE/PAIN Last Admin: 09/19/16 07:33 Dose: 325 mg Docusate Sodium (Colace Cap*) 200 mg PO DAILY PRN PRN Reason: CONSTIPATION Donepezil HCl (Aricept Tab*) 10 mg PO DAILY [facility] Last Admin: 09/19/16 07:24 Dose: 10 mg Escitalopram Oxalate (Lexapro (Nf)) 20 mg PO DAILY [facility] Last Admin: 09/19/16 07:24 Dose: 20 mg Guaifenesin/Dextromethorphan (Robitussin Dm*) 5 ml PO Q6H PRN PRN Reason: COUGH Last Admin: 09/19/16 11:39 Dose: 5 ml Heparin Sodium (Porcine) (Heparin Vial(*)) 5,000 units SUBCUT Q8HR [facility] Last Admin: 09/19/16 13:20 Dose: 5,000 units Levothyroxine Sodium (Synthroid Tab*) 50 mcg PO DAILY@0600 [facility] Last Admin: 09/19/16 05:51 Dose: 50 mcg Lorazepam (Ativan Tab(*)) 0.5 mg PO DAILY PRN PRN Reason: ANXIETY Last Admin: 09/18/16 19:03 Dose: 0.5 mg Magnesium Hydroxide (Milk Of Magnesia Liq*) 30 ml PO DAILY PRN PRN Reason: CONSTIPATION Oseltamivir Phosphate (Tamiflu Cap*) 75 mg PO BID [facility] Stop: 09/22/16 09:01 Last Admin: 09/19/16 07:25 Dose: 75 mg Oxybutynin Chloride (Ditropan Tab*) 5 mg PO DAILY [facility] Last Admin: 09/19/16 07:25 Dose: 5 mg Senna (Senokot Tab*) 2 tab PO DAILY PRN PRN Reason: CONSTIPATION Vital Signs 09/18/16 09/18/16 09/18/16 15:33 15:37 19:03 Temperature 98.8 F Pulse Rate 69 Respiratory 16 16 Rate Blood Pressure (mmHg) O2 Sat by Pulse 93 Oximetry 09/18/16 09/18/16 09/18/16 20:00 21:03 23:29 Temperature 97.4 F Pulse Rate 82 Respiratory 16 18 16 Rate Blood Pressure 149/70 (mmHg) O2 Sat by Pulse 91 Oximetry 09/19/16 09/19/16 07:15 07:28 Temperature 98.5 F Pulse Rate 70 Respiratory 18 16 Rate Blood Pressure 168/57 (mmHg) O2 Sat by Pulse 93 Oximetry Oxygen Devices in Use Now: None Appearance: 85 yo f, AAOx1, in nAd, cooperative Eyes: No Scleral Icterus, PERRLA Ears/Nose/Mouth/Throat: NL Teeth, Lips, Gums, Mucous Membranes Moist Neck: NL Appearance and Movements; NL JVP, Trachea Midline Respiratory: Symmetrical Chest Expansion and Respiratory Effort, Clear to Auscultation Cardiovascular: NL Sounds; No Murmurs; No JVD, RRR Abdominal: NL Sounds; No Tenderness; No Distention, No Hepatosplenomegaly Lymphatic: No Cervical Adenopathy Extremities: No Edema, No Clubbing, Cyanosis Skin: No Rash or Ulcers, No Nodules or Sclerosis Neurological: Alert and Oriented x 3 Result Diagrams: 09/17/16 15:05 09/17/16 15:05 Additional Lab and Data: Lab Results 09/17/16 09/17/16 09/17/16 Range/Units 15:05 15:05 15:05 WBC 5.1 (3.5-10.8) 10^3/ul RBC 4.38 (4.0-5.4) 10^6/ul Hgb 12.5 (12.0-16.0) g/dl Hct 38 (35-47) % MCV 87 (80-97) fL MCH 29 (27-31) pg MCHC 33 (31-36) g/dl RDW 14 (10.5-15) % Plt Count 160 (150-450) 10^3/ul MPV 8 (7.4-10.4) um3 Neut % (Auto) 70.4 (38-83) % Lymph % (Auto) 13.6 L (25-47) % Mckean % (Auto) 13.6 H (1-9) % Eos % (Auto) 1.4 (0-6) % Baso % (Auto) 1.0 (0-2) % Absolute Neuts (auto) 3.6 (1.5-7.7) 10^3/ul Absolute Lymphs (auto) 0.7 L (1.0-4.8) 10^3/ul Absolute Monos (auto) 0.7 (0-0.8) 10^3/ul Absolute Eos (auto) 0.1 (0-0.6) 10^3/ul Absolute Basos (auto) 0.1 (0-0.2) 10^3/ul Absolute Nucleated RBC 0 10^3/ul Nucleated RBC % 0 INR (Anticoag Therapy) 1.02 (0.89-1.11) APTT 33.8 (26.0-36.3) seconds Sodium 133 (133-145) mmol/L Potassium 3.9 (3.5-5.0) mmol/L Chloride 101 (101-111) mmol/L Carbon Dioxide 25 (22-32) mmol/L Anion Gap 7 (2-11) mmol/L BUN 13 (6-24) mg/dL Creatinine 0.65 (0.51-0.95) mg/dL Est GFR ( Amer) 110.9 (>60) Est GFR (Non-Af Amer) 86.2 (>60) BUN/Creatinine Ratio 20.0 (8-20) Glucose 100 (70-100) mg/dL Lactic Acid (0.5-2.0) mmol/L Calcium 8.5 L (8.6-10.3) mg/dL Magnesium 2.0 (1.9-2.7) mg/dL Total Bilirubin 0.60 (0.2-1.0) mg/dL AST 14 (13-39) U/L ALT 9 (7-52) U/L Alkaline Phosphatase 45 (34-104) U/L Total Creatine Kinase 88 (10-223) U/L CK-MB (CK-2) 1.4 (0.6-6.3) ng/mL Troponin I 0.02 (<0.04) ng/mL C-Reactive Protein 9.35 H (< 5.00) mg/L B-Natriuretic Peptide ( - 100) pg/mL Total Protein 7.3 (6.4-8.9) g/dL Albumin 3.6 (3.2-5.2) g/dL Globulin 3.7 (2-4) g/dL Albumin/Globulin Ratio 1.0 (1-3) TSH 1.82 (0.34-5.60) mcIU/mL Urine Color Urine Appearance Urine pH (5-9) Ur Specific [place] (1.010-1.030) Urine Protein (Negative) Urine Ketones (Negative) Urine Blood (Negative) Urine Nitrate (Negative) Urine Bilirubin (Negative) Urine Urobilinogen (Negative) Ur Leukocyte Esterase (Negative) Urine Glucose (Negative) Acetaminophen < 15 mcg/mL Influenza A (Rapid) (Negative) Influenza B (Rapid) (Negative) 09/17/16 09/17/16 09/17/16 Range/Units 15:05 15:05 15:21 WBC (3.5-10.8) 10^3/ul RBC (4.0-5.4) 10^6/ul Hgb (12.0-16.0) g/dl Hct (35-47) % MCV (80-97) fL MCH (27-31) pg MCHC (31-36) g/dl RDW (10.5-15) % Plt Count (150-450) 10^3/ul MPV (7.4-10.4) um3 Neut % (Auto) (38-83) % Lymph % (Auto) (25-47) % Mckean % (Auto) (1-9) % Eos % (Auto) (0-6) % Baso % (Auto) (0-2) % Absolute Neuts (auto) (1.5-7.7) 10^3/ul Absolute Lymphs (auto) (1.0-4.8) 10^3/ul Absolute Monos (auto) (0-0.8) 10^3/ul Absolute Eos (auto) (0-0.6) 10^3/ul Absolute Basos (auto) (0-0.2) 10^3/ul Absolute Nucleated RBC 10^3/ul Nucleated RBC % INR (Anticoag Therapy) (0.89-1.11) APTT (26.0-36.3) seconds Sodium (133-145) mmol/L Potassium (3.5-5.0) mmol/L Chloride (101-111) mmol/L Carbon Dioxide (22-32) mmol/L Anion Gap (2-11) mmol/L BUN (6-24) mg/dL Creatinine (0.51-0.95) mg/dL Est GFR ( Amer) (>60) Est GFR (Non-Af Amer) (>60) BUN/Creatinine Ratio (8-20) Glucose (70-100) mg/dL Lactic Acid 0.8 (0.5-2.0) mmol/L Calcium (8.6-10.3) mg/dL Magnesium (1.9-2.7) mg/dL Total Bilirubin (0.2-1.0) mg/dL AST (13-39) U/L ALT (7-52) U/L Alkaline Phosphatase (34-104) U/L Total Creatine Kinase (10-223) U/L CK-MB (CK-2) (0.6-6.3) ng/mL Troponin I (<0.04) ng/mL C-Reactive Protein (< 5.00) mg/L B-Natriuretic Peptide 275 H ( - 100) pg/mL Total Protein (6.4-8.9) g/dL Albumin (3.2-5.2) g/dL Globulin (2-4) g/dL Albumin/Globulin Ratio (1-3) TSH (0.34-5.60) mcIU/mL Urine Color Urine Appearance Urine pH (5-9) Ur Specific [place] (1.010-1.030) Urine Protein (Negative) Urine Ketones (Negative) Urine Blood (Negative) Urine Nitrate (Negative) Urine Bilirubin (Negative) Urine Urobilinogen (Negative) Ur Leukocyte Esterase (Negative) Urine Glucose (Negative) Acetaminophen mcg/mL Influenza A (Rapid) Positive H (Negative) Influenza B (Rapid) Negative (Negative) 09/17/16 Range/Units 16:40 WBC (3.5-10.8) 10^3/ul RBC (4.0-5.4) 10^6/ul Hgb (12.0-16.0) g/dl Hct (35-47) % MCV (80-97) fL MCH (27-31) pg MCHC (31-36) g/dl RDW (10.5-15) % Plt Count (150-450) 10^3/ul MPV (7.4-10.4) um3 Neut % (Auto) (38-83) % Lymph % (Auto) (25-47) % Mckean % (Auto) (1-9) % Eos % (Auto) (0-6) % Baso % (Auto) (0-2) % Absolute Neuts (auto) (1.5-7.7) 10^3/ul Absolute Lymphs (auto) (1.0-4.8) 10^3/ul Absolute Monos (auto) (0-0.8) 10^3/ul Absolute Eos (auto) (0-0.6) 10^3/ul Absolute Basos (auto) (0-0.2) 10^3/ul Absolute Nucleated RBC 10^3/ul Nucleated RBC % INR (Anticoag Therapy) (0.89-1.11) APTT (26.0-36.3) seconds Sodium (133-145) mmol/L Potassium (3.5-5.0) mmol/L Chloride (101-111) mmol/L Carbon Dioxide (22-32) mmol/L Anion Gap (2-11) mmol/L BUN (6-24) mg/dL Creatinine (0.51-0.95) mg/dL Est GFR ( Amer) (>60) Est GFR (Non-Af Amer) (>60) BUN/Creatinine Ratio (8-20) Glucose (70-100) mg/dL Lactic Acid (0.5-2.0) mmol/L Calcium (8.6-10.3) mg/dL Magnesium (1.9-2.7) mg/dL Total Bilirubin (0.2-1.0) mg/dL AST (13-39) U/L ALT (7-52) U/L Alkaline Phosphatase (34-104) U/L Total Creatine Kinase (10-223) U/L CK-MB (CK-2) (0.6-6.3) ng/mL Troponin I (<0.04) ng/mL C-Reactive Protein (< 5.00) mg/L B-Natriuretic Peptide ( - 100) pg/mL Total Protein (6.4-8.9) g/dL Albumin (3.2-5.2) g/dL Globulin (2-4) g/dL Albumin/Globulin Ratio (1-3) TSH (0.34-5.60) mcIU/mL Urine Color Yellow Urine Appearance Cloudy Urine pH 6.0 (5-9) Ur Specific [place] 1.012 (1.010-1.030) Urine Protein Negative (Negative) Urine Ketones Negative (Negative) Urine Blood Negative (Negative) Urine Nitrate Negative (Negative) Urine Bilirubin Negative (Negative) Urine Urobilinogen Negative (Negative) Ur Leukocyte Esterase Negative (Negative) Urine Glucose Negative (Negative) Acetaminophen mcg/mL Influenza A (Rapid) (Negative) Influenza B (Rapid) (Negative) Microbiology and Other Data: Microbiology 09/18/16 06:00 Nasal Screen MRSA (PCR)(MELVI) - Final Nasal Mrsa Negative Assess/Plan/Problems-Billing Assessment: 85 yo F with h/o dementia, hypothyroidism living in assisted living presented after a fall and was Influenza A positive - Patient Problems (1) Influenza A Comment: with generalized weakness due to it, otherwise asymptomatic. Cont Tamiflu (2) Hypothyroidism Comment: cont synthroid (3) OAB (overactive bladder) Comment: cont Ditropan when hospitalized (4) Dementia Comment: cont Aricept (5) Physical deconditioning Comment: PT eval deemed pt to be in need of skilled PT, will await repeat eval in aM. suspect she will need STR prior to returning to assist living. (6) DVT prophylaxis Comment: heparin sc Status and Disposition: inpatient, due to Influenza a and deconditioning, will most likely need STR.
[2016-09-19] MEDS: LORazepam TAB(*) 0.5 MG PO PRN (17:32)
[2016-09-19] MEDS ORDERED: Haloperidol INJ IV/IM* 5 MG/ML AMP IV SLOW PU ONE (19:45)
[2016-09-20] MEDS: Heparin VIAL(*) 5000 UNITS/ML VIAL (FIVE THOUSAND) SUBCUT SCH (05:58)
[2016-09-20] MEDS: Levothyroxine TAB* 50 MCG TAB PO SCH (05:58)
[2016-09-20 08:28] VITALS: BP 157/66
[2016-09-20] MEDS: Oseltamivir CAP* 75 MG PO SCH (09:25)
[2016-09-20] MEDS: Donepezil TAB* 5 MG PO SCH (09:25)
[2016-09-20] MEDS: CMCS: Escitalopram (NF) 10 MG TAB PO SCH (09:25)
[2016-09-20] MEDS: Oxybutynin TAB* 5 MG PO SCH (09:25)
--- NOTE | 2016-09-21 09:10 | DS ---
DISCHARGE SUMMARY: DATE OF ADMISSION: 09/17/16 DATE OF DISCHARGE: 09/20/16 PRIMARY CARE PROVIDER: Alba Johnson MD DISCHARGE DIAGNOSES: 1. Influenza, type A. 2. Fall, ambulatory dysfunction secondary to above that resolved. SECONDARY DIAGNOSES: 1. Significant dementia. 2. History of vertigo and unsteady gait. 3. Hypothyroidism. 4. Depression. MEDICATIONS AT DISCHARGE: Include: 1. [place] 20 mg daily. 2. Senokot 2 tablets daily. 3. Tamiflu 75 mg b.i.d. 4. Milk of magnesia on a p.r.n. basis. 5. Synthroid 50 mcg daily. 6. Lorazepam 0.5 mg daily p.r.n. 7. Robitussin DM 5 mg every 6 hours p.r.n. 8. Lexapro 20 mg daily. 9. Aricept 10 mg daily. 10. Colace 200 mg daily p.r.n. 11. Probiotic 1 tablet daily. 12. Vitamin D3 50,000 units monthly. 13. Acetaminophen on a p.r.n. basis. LABORATORY DATA PRIOR TO DISCHARGE: CBC on 09/17/16 is unchanged from admission. The patient's blood cultures were negative to date of discharge. HOSPITALIZATION COURSE: Em Arango is an 85-year-old female with history of dementia who presented after a fall to be evaluated in the ED. The patient was noted to have a temperature of 100.4 and generalized weakness. She was diagnosed with influenza A and placed on the medical floor. She was treated with Tamiflu with good results. By the time of discharge, she was evaluated by physical therapy and deemed to be a good candidate to go back to her assisted living facility. After discharge, she was recommended to continue to wear a mask as contact precautions for the next 3 days. PHYSICAL EXAMINATION AT THE TIME OF DISCHARGE: General: The patient is a very pleasant 85-year-old, presently disoriented lady who is in no acute distress. The patient is oriented x1. The patient is alert and cooperative with evaluation. Very poor short term memory. Vital signs: Blood pressure of 157/56, heart rate of 69 and regular, respiratory rate 17, oxygen saturation 96% on room air, and temperature of 97.8. HEENT: Head is atraumatic and normocephalic. Eyes: Pupils equal and reactive to light and accommodation. Oropharynx: Clear. Mucosa moist. Neck: Supple. No JVD. No bruit bilaterally. Cardiovascular: Regular rate and rhythm with 2/6 systolic ejection murmur, auscultated at the left upper sternal border. Respiratory: Clear to auscultation bilaterally. Abdomen: Soft, nontender. Bowel sounds present in all 4 quadrants. Extremities: There is no edema. Pulses present 2+ bilaterally. No clubbing or cyanosis. Neuro Evaluation: Speech clear. Cranial nerves II through XII grossly intact. Motor strength is 5/5 bilaterally. Please note, this is a short summary of the patient's hospital stay. Please refer to further medical records for details. TIME SPENT: Approximately 35 minutes was spent on the patient's discharge. [id number] #: [id number] DISHA
== END 2016-09-20 14:35 | disposition home or self-care (01) | DRG 195 ==
LOC: ED 13:53 → MED 16:37
PROVIDERS: ADMIT Internal Medicine; ATTEND Internal Medicine
DX: J09.X2 Influenza due to identified novel influenza A virus with other respiratory manifestations (principal); G30.9 Alzheimer's disease, unspecified; F02.80 Dementia in other diseases classified elsewhere, unspecified severity, without behavioral disturbance, psychotic disturbance, mood disturbance, and anxiety; E03.9 Hypothyroidism, unspecified; F32.9 Major depressive disorder, single episode, unspecified; N32.81 Overactive bladder; Z88.0 Allergy status to penicillin; Z91.81 History of falling
CPT/HCPCS: 36415; 70450; 71010; 72125; 80053; 80329; 81003; 82550; 82553; 83605; 83735; 83880; 84443; 84484; 85025; 85610; 85730; 86140; 87040; 87502; 87641; A9270-GY; G0480; J1630; J1644

== ENCOUNTER 2016-09-24 13:42 | Emergency (ER) | payer MEDICARE, MEDICAID ==
[2016-09-24] MEDS ORDERED: NS 0.9% 1000 ML* 1,000 ML IV ONE (13:49)
--- NOTE | 2016-09-24 14:20 | RAD ---
HISTORY: Weakness COMPARISONS: September 17, 2016 VIEWS:1: Single frontal portable view of the chest at 2:00 PM FINDINGS: LINES AND TUBES: None. CARDIOMEDIASTINAL SILHOUETTE: The cardiomediastinal silhouette is normal for portable technique. PLEURA: The costophrenic angles are sharp. No pleural abnormalities are noted. LUNG PARENCHYMA: The lung volumes are low. The lungs are clear accounting for the phase of respiration. ABDOMEN: The upper abdomen is clear. There is no subphrenic gas. BONES AND SOFT TISSUES: No bone or soft tissue abnormalities are noted. IMPRESSION: LOW LUNG VOLUMES. NO ACTIVE CARDIOPULMONARY DISEASE.
--- NOTE | 2016-09-24 14:45 | RAD ---
Indication: Weakness, fall. CT of the brain was performed without IV contrast. Ventricular structures are midline. No midline shift is noted. The extra-axial spaces are unremarkable. There is no evidence of intracranial mass or hemorrhage. No other high or low density lesions are identified. Mastoid air cells and paranasal sinuses are unremarkable. When compared to previous exam of September 17, 2016 no significant change is noted. IMPRESSION: Atrophy. There is no evidence of intracranial mass or hemorrhage is noted.
[2016-09-24 14:57] LABS: Hematocrit 36 % (35-47); Hemoglobin 11.6 g/dl (12.0-16.0); Mean Corpuscular HGB Conc 33 g/dl (31-36); Mean Corpuscular Hemoglobin 28 pg (27-31); Mean Corpuscular Volume 87 fL (80-97); Mean Platelet Volume 9 um3 (7.4-10.4); Red Blood Count 4.11 10^6/ul (4.0-5.4); Red Cell Distribution Width 14 % (10.5-15); White Blood Count 9.2 10^3/ul (3.5-10.8)
[2016-09-24 15:09] LABS: Troponin I 0.01 ng/mL (<0.04)
[2016-09-24 15:24] LABS: Albumin 3.4 g/dL (3.2-5.2); BUN/Creatinine Ratio 25.4 (8-20); Calcium 8.7 mg/dL (8.6-10.3); EGFR Non-African American 89.4 (>60); Globulin 3.8 g/dL (2-4); Potassium 3.8 mmol/L (3.5-5.0); Total Protein 7.2 g/dL (6.4-8.9)
[2016-09-24 16:04] LABS: TSH (Thyroid Stimulating Horm) 1.48 mcIU/mL (0.34-5.60)
[2016-09-24 16:13] LABS: Urine Bilirubin Negative (Negative); Urine Glucose Negative (Negative); Urine Nitrite Negative (Negative)
--- NOTE | 2016-09-24 16:49 | ED ---
Brigitte Jamison Anna, scribed for Shonna Iraheta MD on 09/24/16 at 1350 . Adult Trauma - HPI Summary HPI Summary: Patient is an 85 y/o female coming to [facility] presenting with generalized weakness. The patient slid out of bed unwitnessed today, and staff was unsure how long she was on the floor, up to 30 minutes. She currently denies head pain but reports that she has had trouble walking. She denied pain upon arrival of EMS but now reports ankle pain. She recently finished a course of Tamiflu and has been somewhat dehydrated. LEVEL 5 CAVEAT FULL HISTORY IS UNATTAINABLE DUE TO HISTORY OF DEMENTIA - History of Current Complaint Stated Complaint: WEAKNESS Hx Obtained From: Patient, EMS - Additional Pertinent History Primary Care Physician: AMBER - Allergy/Home Medications Allergies/Adverse Reactions: Allergies Allergy/AdvReac Type Severity Reaction Status Date / Time Penicillins [PCN] Allergy Severe Rash Verified 04/01/14 21:36 Home Medications: Home Medications Albuterol Sulfate [Proair Respiclick] 1 puff INH BID 09/24/16 [History Confirmed 09/24/16] DOXYcycline CAP(*) [DOXYcycline 100MG CAP(*)] 100 mg PO BID 09/24/16 [History Confirmed 09/24/16] PMH/Surg Hx/FS Hx/Imm Hx Endocrine/Hematology History: Reports: Hx Thyroid Disease Denies: Hx Diabetes Cardiovascular History: Reports: Hx Aneurysm - Sm fusiform aortic [id number] , Hx Hypertension Denies: Hx Congestive Heart Failure, Other Cardiovascular Problems/Disorders Respiratory History: Denies: Other Respiratory Problems/Disorders GI History: Denies: Other GI Disorders History: Denies: Hx Renal Disease, Other Problems/Disorders Musculoskeletal History: Reports: Hx Arthritis Sensory History: Reports: Hx Deafness Neurological History: Reports: Hx Dementia, Hx Headaches Psychiatric History: Reports: Hx Depression - Family History Known Family History: Positive: Cardiac Disease - Social History Occupation: Retired Lives: Alone - Unassisted Living Alcohol Use: None Substance Use Type: Reports: None Smoking Status (MU): Never Smoked Tobacco Review of Systems - ROS Summary Review of Systems Summary: LEVEL 5 CAVEAT FULL HISTORY IS UNATTAINABLE DUE TO HISTORY OF DEMENTIA Positive: Arthralgia - ankle pain Positive: Weakness All Other Systems Reviewed And Are Negative: No Physical Exam Triage Information Reviewed: Yes Vital Signs On Initial Exam: Temp Pulse Resp BP Pulse Ox 99.6 F 70 16 119/58 98 09/24/16 14:02 09/24/16 14:02 09/24/16 14:02 09/24/16 14:02 09/24/16 14:02 Vital Signs Reviewed: Yes Appearance: Positive: Well-Appearing, No Pain Distress Skin: Positive: Warm, Skin Color Reflects Adequate Perfusion, Dry Eyes: Positive: EOMI, FAUZIA ENT: Positive: Pharynx normal, TMs normal Neck: Positive: Supple, Nontender Respiratory/Lung Sounds: Positive: Clear to Auscultation, Breath Sounds Present. Negative: Rales, Rhonchi, Wheezes Cardiovascular: Positive: RRR, Murmur - Loud systolic murmur. Negative: Rub, Other - gallops Abdomen Description: Positive: Nontender, Soft Bowel Sounds: Positive: Present Musculoskeletal: Positive: Strength/ROM Intact. Negative: Edema Left, Edema Right Neurological: Positive: Normal, Sensory/Motor Intact, Alert, Oriented to Person Place, Time, CN Intact II-III Psychiatric: Positive: Affect/Mood Appropriate Diagnostics - Vital Signs Vital Signs Temp Pulse Resp BP Pulse Ox 09/24/16 15:48 83 09/24/16 15:30 86 23 121/58 95 09/24/16 15:00 83 21 102/84 95 09/24/16 14:43 79 21 94 09/24/16 14:41 127/69 09/24/16 14:02 99.6 F 70 16 119/58 98 - Laboratory Lab Results: Lab Results 09/24/16 09/24/16 09/24/16 Range/Units 14:38 14:38 14:38 WBC 9.2 (3.5-10.8) 10^3/ul RBC 4.11 (4.0-5.4) 10^6/ul Hgb 11.6 L (12.0-16.0) g/dl Hct 36 (35-47) % MCV 87 (80-97) fL MCH 28 (27-31) pg MCHC 33 (31-36) g/dl RDW 14 (10.5-15) % Plt Count 171 (150-450) 10^3/ul MPV 9 (7.4-10.4) um3 Neut % (Auto) 73.5 (38-83) % Lymph % (Auto) 12.7 L (25-47) % Pierce % (Auto) 11.7 H (1-9) % Eos % (Auto) 1.2 (0-6) % Baso % (Auto) 0.9 (0-2) % Absolute Neuts (auto) 6.7 (1.5-7.7) 10^3/ul Absolute Lymphs (auto) 1.2 (1.0-4.8) 10^3/ul Absolute Monos (auto) 1.1 H (0-0.8) 10^3/ul Absolute Eos (auto) 0.1 (0-0.6) 10^3/ul Absolute Basos (auto) 0.1 (0-0.2) 10^3/ul Absolute Nucleated RBC 0.01 10^3/ul Nucleated RBC % 0.1 Sodium 135 (133-145) mmol/L Potassium 3.8 (3.5-5.0) mmol/L Chloride 104 (101-111) mmol/L Carbon Dioxide 24 (22-32) mmol/L Anion Gap 7 (2-11) mmol/L BUN 16 (6-24) mg/dL Creatinine 0.63 (0.51-0.95) mg/dL Est GFR ( Amer) 115.0 (>60) Est GFR (Non-Af Amer) 89.4 (>60) BUN/Creatinine Ratio 25.4 H (8-20) Glucose 115 H (70-100) mg/dL Lactic Acid 0.8 (0.5-2.0) mmol/L Calcium 8.7 (8.6-10.3) mg/dL Magnesium 2.0 (1.9-2.7) mg/dL Total Bilirubin 1.00 (0.2-1.0) mg/dL AST 13 (13-39) U/L ALT 16 (7-52) U/L Alkaline Phosphatase 42 (34-104) U/L Troponin I 0.01 (<0.04) ng/mL Total Protein 7.2 (6.4-8.9) g/dL Albumin 3.4 (3.2-5.2) g/dL Globulin 3.8 (2-4) g/dL Albumin/Globulin Ratio 0.9 L (1-3) TSH 1.48 (0.34-5.60) mcIU/mL Urine Color Urine Appearance Urine pH (5-9) Ur Specific [place] (1.010-1.030) Urine Protein (Negative) Urine Ketones (Negative) Urine Blood (Negative) Urine Nitrate (Negative) Urine Bilirubin (Negative) Urine Urobilinogen (Negative) Ur Leukocyte Esterase (Negative) Urine Glucose (Negative) 09/24/16 Range/Units 16:06 WBC (3.5-10.8) 10^3/ul RBC (4.0-5.4) 10^6/ul Hgb (12.0-16.0) g/dl Hct (35-47) % MCV (80-97) fL MCH (27-31) pg MCHC (31-36) g/dl RDW (10.5-15) % Plt Count (150-450) 10^3/ul MPV (7.4-10.4) um3 Neut % (Auto) (38-83) % Lymph % (Auto) (25-47) % Pierce % (Auto) (1-9) % Eos % (Auto) (0-6) % Baso % (Auto) (0-2) % Absolute Neuts (auto) (1.5-7.7) 10^3/ul Absolute Lymphs (auto) (1.0-4.8) 10^3/ul Absolute Monos (auto) (0-0.8) 10^3/ul Absolute Eos (auto) (0-0.6) 10^3/ul Absolute Basos (auto) (0-0.2) 10^3/ul Absolute Nucleated RBC 10^3/ul Nucleated RBC % Sodium (133-145) mmol/L Potassium (3.5-5.0) mmol/L Chloride (101-111) mmol/L Carbon Dioxide (22-32) mmol/L Anion Gap (2-11) mmol/L BUN (6-24) mg/dL Creatinine (0.51-0.95) mg/dL Est GFR ( Amer) (>60) Est GFR (Non-Af Amer) (>60) BUN/Creatinine Ratio (8-20) Glucose (70-100) mg/dL Lactic Acid (0.5-2.0) mmol/L Calcium (8.6-10.3) mg/dL Magnesium (1.9-2.7) mg/dL Total Bilirubin (0.2-1.0) mg/dL AST (13-39) U/L ALT (7-52) U/L Alkaline Phosphatase (34-104) U/L Troponin I (<0.04) ng/mL Total Protein (6.4-8.9) g/dL Albumin (3.2-5.2) g/dL Globulin (2-4) g/dL Albumin/Globulin Ratio (1-3) TSH (0.34-5.60) mcIU/mL Urine Color Yellow Urine Appearance Cloudy Urine pH 5.0 (5-9) Ur Specific [place] 1.011 (1.010-1.030) Urine Protein Negative (Negative) Urine Ketones Negative (Negative) Urine Blood Negative (Negative) Urine Nitrate Negative (Negative) Urine Bilirubin Negative (Negative) Urine Urobilinogen Negative (Negative) Ur Leukocyte Esterase Negative (Negative) Urine Glucose Negative (Negative) Result Diagrams: 09/24/16 14:38 09/24/16 14:38 Lab Statement: Any lab studies that have been ordered have been reviewed, and results considered in the medical decision making process. - Radiology CXR Xray Interpretation: No Acute Changes Radiology Interpretation Completed By: Radiologist - IMPRESSION: LOW LUNG VOLUMES. NO ACTIVE CARDIOPULMONARY DISEASE. - CT Brain CT CT Interpretation: No Acute Changes, Positive (See Comments) CT Interpretation Completed By: Radiologist - IMPRESSION: Atrophy. There is no evidence of intracranial mass or hemorrhage is noted. - EKG 1425 Cardiac Rate: NL - 81 bpm EKG Rhythm: Sinus Rhythm ST Segment: Non-Specific EKG Interpretation: PVCs Adult Trauma Course/Dx - Course Course Of Treatment: pt without ankle pain here and without any symptoms ct head (for fall) neg and labs neg pt able to ambulated easily with walker ok to go home - Diagnoses Provider Diagnoses: Fall Discharge - Discharge Plan Condition: Stable Disposition: HOME Referrals: Alba Johnson MD [Primary Care Provider] - The documentation as recorded by the Brigitte hays Anna accurately reflects the service I personally performed and the decisions made by , Shonna Iraheta MD.
[2016-09-24 17:18] VITALS: BP 143/51
== END 2016-09-24 17:46 | disposition home or self-care (01) ==
LOC: ED 13:42
DX: M25.579 Pain in unspecified ankle and joints of unspecified foot (principal); F03.90 Unspecified dementia, unspecified severity, without behavioral disturbance, psychotic disturbance, mood disturbance, and anxiety; R53.1 Weakness
CPT/HCPCS: 36415; 70450; 71010; 80053; 81003; 83605; 83735; 84443; 84484; 85025; 93005; 99283

== ENCOUNTER 2016-09-27 11:29 | Inpatient (IN) | payer MEDICARE, MEDICAID ==
[2016-09-27] MEDS ORDERED: NS 0.9% 1000 ML* 1,000 ML IV ONE (12:58)
--- NOTE | 2016-09-27 13:59 | RAD ---
HISTORY: Weakness, cannot ambulate COMPARISONS: September 24, 2016 TECHNIQUE: Multiple contiguous axial CT scans were obtained of the head without intravenous contrast. Coronal and sagittal multiplanar reformations are also submitted for review. FINDINGS: HEMORRHAGE/INFARCT: There is no hemorrhage or acute infarct. MASSES/SHIFT: There is no mass or shift. EXTRA-AXIAL SPACES: There are no extra-axial fluid collections. SULCI AND VENTRICLES: There is mild diffuse and proportional enlargement of the sulci and ventricles. CEREBRUM: There is hypoattenuation of the periventricular and subcortical white matter. BRAINSTEM: There are no focal parenchymal abnormalities. CEREBELLUM: There are no focal parenchymal abnormalities. VESSELS: The vessels are grossly normal. PARANASAL SINUSES: The paranasal sinuses are clear. ORBITS: The orbits are unremarkable. BONES AND SOFT TISSUE: No bone or soft tissue abnormalities are noted. OTHER: None IMPRESSION: NO ACUTE INTRACRANIAL PATHOLOGY.
--- NOTE | 2016-09-27 14:00 | RAD ---
HISTORY: Cough COMPARISONS: September 24, 2016 VIEWS:1: Single frontal portable view of the chest at 1:25 PM FINDINGS: LINES AND TUBES: None. CARDIOMEDIASTINAL SILHOUETTE: The cardiomediastinal silhouette is normal for portable technique. PLEURA: The costophrenic angles are sharp. No pleural abnormalities are noted. LUNG PARENCHYMA: The lungs are clear. ABDOMEN: The upper abdomen is clear. There is no subphrenic gas. BONES AND SOFT TISSUES: No bone or soft tissue abnormalities are noted. IMPRESSION: NO ACTIVE CARDIOPULMONARY DISEASE.
[2016-09-27 14:18] LABS: Hematocrit 36 % (35-47); Hemoglobin 11.9 g/dl (12.0-16.0); Mean Corpuscular HGB Conc 33 g/dl (31-36); Mean Corpuscular Hemoglobin 28 pg (27-31); Mean Corpuscular Volume 86 fL (80-97); Mean Platelet Volume 9 um3 (7.4-10.4); Red Blood Count 4.23 10^6/ul (4.0-5.4); Red Cell Distribution Width 14 % (10.5-15); White Blood Count 9.1 10^3/ul (3.5-10.8)
[2016-09-27 14:46] LABS: Albumin 3.4 g/dL (3.2-5.2); BUN/Creatinine Ratio 21.3 (8-20); EGFR African American 119.3 (>60); EGFR Non-African American 92.8 (>60); Globulin 4.1 g/dL (2-4); Potassium 3.1 mmol/L (3.5-5.0); Total Bilirubin 0.6 mg/dL (0.2-1.0); Total Protein 7.5 g/dL (6.4-8.9)
--- NOTE | 2016-09-27 14:49 | ED ---
Domingo Jamison Adam, scribed for Shonna Iraheta MD on 09/27/16 at 1213 . Adult Trauma - HPI Summary HPI Summary: Pt is an 85 year old female presenting with multiple recent falls. She was discharged from the hospital last week after being seen for cough and flu- symptoms. She then returned to the hospital with dehydration and was discharged again. She states that she is still dehydrated and is having difficulty standing because she is weak. Therefore she has been falling frequently. Her cough is also still lingering. She denies any SOB. Pt denies any PMHx of HTN, DM , HLD, KS, CVA or anything else. Negative tobacco/alcohol/drug use. FMHx of DM ( mother). - History of Current Complaint Chief Complaint: EDGeneral Stated Complaint: FALL Time Seen by Provider: 09/27/16 12:11 Hx Obtained From: Patient Mechanism of Injury: Fall Ambulatory at the Scene: Yes Loss of Consciousness: no loss of consciousness Onset/Duration: Started Days Ago, Traumatic Pain Intensity: 0 Pain Scale Used: 0-10 Numeric Aggravating Factor(s): Nothing Alleviating Factor(s): Nothing Associated Signs & Symptoms: Positive: Cough, Numbness/Weakness. Negative: SOB - Additional Pertinent History Primary Care Physician: AMBER - Allergy/Home Medications Allergies/Adverse Reactions: Allergies Allergy/AdvReac Type Severity Reaction Status Date / Time Penicillins [PCN] Allergy Severe Rash Verified 04/01/14 21:36 Home Medications: Home Medications GuaiFENesin DM* [Robitussin DM*] 5 ml PO Q6H PRN 09/27/16 [History Confirmed ] PMH/Surg Hx/FS Hx/Imm Hx Endocrine/Hematology History: Reports: Hx Thyroid Disease Denies: Hx Diabetes Cardiovascular History: Reports: Hx Aneurysm - Sm fusiform aortic [id number] , Hx Hypertension Denies: Hx Congestive Heart Failure, Other Cardiovascular Problems/Disorders Respiratory History: Denies: Other Respiratory Problems/Disorders GI History: Denies: Other GI Disorders History: Denies: Hx Renal Disease, Other Problems/Disorders Musculoskeletal History: Reports: Hx Arthritis Sensory History: Reports: Hx Deafness Neurological History: Reports: Hx Dementia, Hx Headaches Psychiatric History: Reports: Hx Depression Infectious Disease History: No Infectious Disease History: Denies: Traveled Outside the [place] in Last 30 Days - Family History Known Family History: Positive: Cardiac Disease, Diabetes - Mother - Social History Occupation: Retired Lives: Assisted Living Alcohol Use: None Hx Substance Use: No Substance Use Type: Reports: None Hx Tobacco Use: No Smoking Status (MU): Never Smoked Tobacco Review of Systems Positive: Cough. Negative: Shortness Of Breath Positive: Weakness All Other Systems Reviewed And Are Negative: Yes Physical Exam Triage Information Reviewed: Yes Vital Signs On Initial Exam: Initial Vitals Temp Pulse Resp BP Pulse Ox 99.3 F 88 20 117/60 91 09/27/16 11:35 09/27/16 11:35 09/27/16 11:35 09/27/16 11:35 09/27/16 11:35 Vital Signs Reviewed: Yes Appearance: Positive: Well-Appearing, No Pain Distress Skin: Positive: Warm, Skin Color Reflects Adequate Perfusion, Dry Eyes: Positive: EOMI, FAUZIA ENT: Positive: TMs normal, Other - Frequent coughing Neck: Positive: Supple, Nontender Respiratory/Lung Sounds: Positive: Clear to Auscultation, Breath Sounds Present. Negative: Rales, Rhonchi, Wheezes Cardiovascular: Positive: RRR. Negative: Murmur, Rub Abdomen Description: Positive: Nontender, Soft. Negative: Distended, Guarding Bowel Sounds: Positive: Present Musculoskeletal: Positive: Strength/ROM Intact. Negative: Edema Left, Edema Right Neurological: Positive: Sensory/Motor Intact, Alert, Oriented to Person Place, Time, CN Intact II-III, Other - Able to answer questions and follow exam Psychiatric: Positive: Affect/Mood Appropriate - Zackary Coma Scale Coma Scale Total: 14 Diagnostics - Vital Signs Vital Signs Temp Pulse Resp BP Pulse Ox 09/27/16 11:35 99.3 F 88 20 117/60 91 - Laboratory Result Diagrams: 09/27/16 13:55 09/27/16 13:55 Lab Statement: Any lab studies that have been ordered have been reviewed, and results considered in the medical decision making process. - Radiology CXR Radiology Interpretation Completed By: Radiologist - IMPRESSION: NO ACTIVE CARDIOPULMONARY DISEASE - CT BRAIN CT Interpretation Completed By: Radiologist - IMPRESSION: NO ACUTE INTRACRANIAL PATHOLOGY. - EKG 13:00 Cardiac Rate: NL - 95 BPM EKG Interpretation: Nonspecific T wave changes. PVC. Adult Trauma Course/Dx - Course Course Of Treatment: 85 yo female with recent hospitalization for flu not eating and having difficulty ambulating. Case discussed with dr Johnson who was clear pt couldn't go back to her assisted living facility. Pt accepted for obv by Dr. Meneses - Diagnoses Provider Diagnoses: WEAKNESS, POSSIBLE POST INFLUENZA PNEUMONIA - Physician Notifications Discussed Care Of Patient With: Dr. Johnson who said that the patient should be admitted. Dr. Saucedo at 13:15. She accepts admission of the patient. Discharge - Discharge Plan Condition: Fair Disposition: ADMITTED TO [facility] documentation as recorded by the Domingo hays Adam accurately reflects the service I personally performed and the decisions made by me, Shonna Iraheta MD.
[2016-09-27 15:20] LABS: Troponin I 0.01 ng/mL (<0.04)
[2016-09-27 15:27] LABS: TSH (Thyroid Stimulating Horm) 2.05 mcIU/mL (0.34-5.60)
[2016-09-27] MEDS ORDERED: Docusate CAP* 100 MG PO PRN (16:03)
[2016-09-27] MEDS ORDERED: Senna TAB PO PRN (16:03)
[2016-09-27] MEDS ORDERED: Magnesium Hydroxide LIQ* 30 ML UDC PO PRN (16:03)
[2016-09-27] MEDS ORDERED: GuaiFENesin DM* 5 ML UDC PO PRN (16:03)
[2016-09-27] MEDS ORDERED: Potassium Chlor TAB* 20 MEQ TAB.ER PO ONE (16:05)
[2016-09-27] MEDS: Acetaminophen TAB* 325 MG PO PRN (18:36)
[2016-09-27] MEDS: DOXYcycline CAP(*) 100 MG PO SCH (21:28)
[2016-09-27] MEDS: Heparin VIAL(*) 5000 UNITS/ML VIAL (FIVE THOUSAND) SUBCUT SCH (21:29)
[2016-09-27] MEDS ORDERED: Haloperidol INJ IV/IM* 5 MG/ML AMP ONE (23:54)
[2016-09-28] MEDS ORDERED: Haloperidol INJ IV/IM* 5 MG/ML AMP IV SLOW PU ONE (00:20)
--- NOTE | 2016-09-28 00:32 | HP ---
HOSPITAL MEDICINE HISTORY AND PHYSICAL: DATE OF ADMISSION: 09/27/16 PRIMARY CARE PHYSICIAN: Dr. Johnson. ATTENDING PHYSICIAN: Dr. Lia Neumann *(dictation provided by Vickie Vela NP) CHIEF COMPLAINT: Falls and poor oral intake. HISTORY OF PRESENT ILLNESS: Ms. Arango is an 85-year-old female with the past medical history of dementia and therefore, she is unable to provide information for HPI today. Information was obtained from the paper work sent over from [facility]. Per the report, Ms. Arango was admitted to our hospital and discharged on 09/20/16 after being treated for the flu. At that time, the patient was assessed by Physical Therapy and found to be independent for continued living at [facility]. Since returning to the [facility] on the , the staff there have noted that the patient has had very poor oral intake, they state that she missed many meals. They also note that she has had [address] Johnson, who suggested that she be brought back to the emergency room again for evaluation. I will note that per the list of medications from [facility], the patient was started on doxycycline a couple of days ago though the indication is not documented. I see that she had an x-ray on the here in our hospital that showed no evidence of pneumonia. In the emergency room, Ms. Arango had no leukocytosis, no fevers, she had stable vital signs. Her labs are unremarkable except for a mild hypokalemia with potassium of 3.1. She herself has no complaints today and is in good spirits. PAST MEDICAL HISTORY: 1. Dementia. 2. Recent flu, status post Tamiflu. 3. History of vertigo and unsteady gait. 4. Hypothyroidism. 5. Depression. MEDICATIONS: 1. Albuterol 1 puff inhaled b.i.d. 2. Cholecalciferol 50,000 units p.o. monthly. 3. Cranberry, vitamin C, probiotic 1 tab p.o. daily. 4. Doxycycline 100 mg p.o. b.i.d. 5. Citalopram 20 mg p.o. daily. 6. Guaifenesin p.r.n. 7. Trospium 20 mg p.o. daily. 8. Tylenol 325 mg p.o. q.6 hours p.r.n. 9. Docusate 200 mg p.o. daily p.r.n. 10. Donepezil 10 mg p.o. daily. 11. Levothyroxine 50 mcg p.o. daily. 12. Magnesium hydroxide 30 mL p.o. daily. 13. Senna 2 tabs p.o. daily. ALLERGIES: To PENICILLIN. FAMILY HISTORY: Unobtainable. SOCIAL HISTORY: Unobtainable. REVIEW OF SYSTEMS: Ms. Arango denies any complaints today and states she feels well. No further review of systems was attempted due to dementia. PHYSICAL EXAMINATION GENERAL: Mr. Arango is lying in the bed. She is in no acute distress. VITAL SIGNS: Temperature 98.6, heart rate 97, respiratory rate 22, O2 saturation is 96% on room air, blood pressure 117/60. LUNGS: Clear to auscultation bilaterally with no accessory muscle use and good aeration. HEART: S1 and S2. There is a murmur at the sternal border; a systolic murmur. The rhythm is regular. ABDOMEN: Soft, nontender, with bowel sounds positive x4. EXTREMITIES: No cyanosis or edema. NEUROLOGIC: She is alert. She is oriented to herself, she is not oriented to time or place. She thinks she is still at her home. She does move all extremities equally. There is no facial asymmetry or focal weakness. Extraocular movements are intact. SKIN: Intact. DIAGNOSTIC STUDIES/LAB DATA: WBC 9.1, hemoglobin 11.9, hematocrit 36, and platelet count 278. Sodium 137, potassium 3.1, chloride 103, serum bicarbonate 27, BUN 13, creatinine 0.61, glucose 104, lactic acid 1.0. Troponin 0.01. TSH 2.05. Chest x-ray shows no acute process. Brain CT shows no acute process. EKG shows sinus rhythm with no evidence of ischemia and heart rate about 90. ASSESSMENT AND PLAN: Ms. Arango is an 85-year-old female with a past medical history of dementia, who was discharged from our hospital on 09/20/16 after being treated for flu. She was seen here in the hospital in the emergency room on 09/24/16 after a fall without any evidence of injury. She has [facility]. I note that the recent chest x- ray was negative. Plans are for observation in the hospital out of concern for poor oral intake, falls and unsafe living situation. Our plans are as follows. 1. Falls. The patient has been noted to have an unsteady gait and with her history of dementia, she is high risk for falls. She was assessed by Physical Therapy at her last hospitalization and felt to continue to be independent. I question whether or not she needs more aggressive monitoring and assistance given her dementia. Physical therapy has been ordered again to reevaluate. I do not see any other reason for her fall. She does not appear dehydrated. She is not orthostatic. Her labs are normal. There is no evidence of infection. Her CT brain was normal. 2. Question of infection. The patient is on [facility]xycycline at the [facility] and I will continue that for a 7-day course as it had been started already, although I am not quite clear what the indication was. I see no evidence of pneumonia. Her urinalysis from 09/24/16 was also negative. 3. Hypothyroidism. Continue levothyroxine. 4. Hypokalemia. Continue potassium supplement. 5. DVT prophylaxis with heparin subcu. 6. Disposition: To medical floor for observation overnight with support from Case Management and social workers regarding placement. TIME SPENT: Approximately 60 minutes was spent on admission of this patient; more than half the time was spent with her at the bedside reviewing the events leading up to this hospitalization, performing the physical examination, and reviewing the plan of care. VICKIE VELA NP CC: Dr. Johnson* [id number]/[facility] #: [id number] DISHA
[2016-09-28] MEDS: Levothyroxine TAB* 50 MCG TAB PO SCH (05:24)
[2016-09-28] MEDS: Heparin VIAL(*) 5000 UNITS/ML VIAL (FIVE THOUSAND) SUBCUT SCH ×3 (05:24→22:49)
[2016-09-28 07:41] LABS: BUN/Creatinine Ratio 22.6 (8-20); Calcium 8.4 mg/dL (8.6-10.3); EGFR African American 140.3 (>60); EGFR Non-African American 109.1 (>60); Potassium 3.4 mmol/L (3.5-5.0)
[2016-09-28] MEDS: Donepezil TAB* 5 MG PO SCH (09:37)
[2016-09-28] MEDS: DOXYcycline CAP(*) 100 MG PO SCH (09:37)
[2016-09-28] MEDS: Acetaminophen TAB* 325 MG PO PRN (11:02)
[2016-09-28] MEDS ORDERED: methylPREDNISolone SOD SUCC* 125 MG 2 ML VIAL IV ONE (11:26)
--- NOTE | 2016-09-28 11:36 | PN ---
Subjective Date of Service: 09/28/16 Interval History: This is a 85 yo female with a h/o mild-mod dementia with a recent hospital admission for influenza who lives at [facility]. She was discharged back to [facility] 09/20/16. Since that time she has had a persistent cough and fatigue. She has had a few falls at home and missing several meals due to fatigue. She was started on doxycycline ~1 week ago for the cough and has noted no improvement. She has been afebrile. No h/o asthma/COPD. No sig smoking hx. She returned to the ER yesterday. Labs and imaging were unremarkable. She was admitted for her weakness under observation status. This am, she offers no acute complaints. She continues to cough frequently. She feels better than the time of admission. Denies SOB. No abd pain, n/v. Objective Active Medications: Acetaminophen (Tylenol Tab*) 325 mg PO Q6H PRN PRN Reason: HEADACHE/PAIN Last Admin: 09/28/16 11:02 Dose: 325 mg Benzonatate (Tessalon Cap*) 100 mg PO BID [facility] Docusate Sodium (Colace Cap*) 200 mg PO DAILY PRN PRN Reason: CONSTIPATION Donepezil HCl (Aricept Tab*) 10 mg PO DAILY [facility] Last Admin: 09/28/16 09:37 Dose: 10 mg Guaifenesin/Dextromethorphan (Robitussin Dm*) 5 ml PO Q6H PRN PRN Reason: COUGH Heparin Sodium (Porcine) (Heparin Vial(*)) 5,000 units SUBCUT Q8HR [facility] Last Admin: 09/28/16 05:24 Dose: 5,000 units Levothyroxine Sodium (Synthroid Tab*) 50 mcg PO 0600 [facility] Last Admin: 09/28/16 05:24 Dose: 50 mcg Magnesium Hydroxide (Milk Of Magnesia Liq*) 30 ml PO DAILY PRN PRN Reason: CONSTIPATION Senna (Senokot Tab*) 2 tab PO DAILY PRN PRN Reason: CONSTIPATION Vital Signs: Temp Pulse Resp BP Pulse Ox 98.0 F 75 18 144/55 93 09/28/16 07:24 09/28/16 07:24 09/28/16 07:24 09/28/16 07:24 09/28/16 07:24 Appearance: Faigued elderly female in NAD. Accompanied by her daughters Neck: NL Appearance and Movements; NL JVP Respiratory: Symmetrical Chest Expansion and Respiratory Effort, - - few faint wheezes noted Cardiovascular: NL Sounds; No Murmurs; No JVD, RRR Abdominal: NL Sounds; No Tenderness; No Distention Extremities: No Edema Neurological: Alert and Oriented x 3 Result Diagrams: 09/27/16 13:55 09/28/16 06:12 Diagnostic Imaging: CXR - NAD Ct brain - NAD EKG Data: sinus rhythm, no ischemic changes Assess/Plan/Problems-Billing Assessment: This is an 85 yo female with mild to mod dementia with recent hospital admission for influenza that was readmitted with weakness and persistent cough. - Patient Problems (1) Post-viral cough syndrome Comment: No PNA appreciated on CXR Her persistent cough seems to be consistent with a postviral cough syndrome Will stop doxycycline as there has been no improvement after ~7d of therapy Treat with corticosteroids and antitussives (2) Weakness Comment: Patient's recent illness and persistent cough has left her profoundly weak She would benefit from a VARUN stay Pending PT eval Pt and her family are agreeable with rehab (3) Dementia Comment: Mild to mod cont Aricept (4) Hypothyroidism Comment: TSH 2.05 cont synthroid Status and Disposition: Patient is persistently weak, would benefit from VARUN. Pending PT eval. Cont observation stay
[2016-09-28] MEDS: Benzonatate CAP* 100 MG PO SCH ×2 (12:29→22:49)
[2016-09-28] MEDS ORDERED: LORazepam TAB(*) 0.5 MG PO ONE (16:52)
[2016-09-28] MEDS ORDERED: QUEtiapine TAB* 25 MG PO SCH (21:00)
[2016-09-29] MEDS: Heparin VIAL(*) 5000 UNITS/ML VIAL (FIVE THOUSAND) SUBCUT SCH (06:37)
[2016-09-29] MEDS: Levothyroxine TAB* 50 MCG TAB PO SCH (06:37)
[2016-09-29 08:01] VITALS: BP 159/87
[2016-09-29] MEDS: Benzonatate CAP* 100 MG PO SCH (08:21)
[2016-09-29] MEDS: Acetaminophen TAB* 325 MG PO PRN (08:21)
[2016-09-29] MEDS: Donepezil TAB* 5 MG PO SCH (08:21)
--- NOTE | 2016-09-29 10:50 | DS ---
DATE OF ADMISSION: 09/27/2016. DATE OF DISCHARGE: 09/29/2016. PRIMARY CARE PROVIDER: Dr. Johnson. DISCHARGING PROVIDER: AISHWARYA Castro. SUPERVISING PHYSICIAN: Dr. Adia Nath *(report dictated by AISHWARYA Castro). PRIMARY DISCHARGE DIAGNOSES: 1. Post viral cough with recent influenza infection, no evidence of acute pneumonia. 2. Deconditioning secondary to recent acute illness. SECONDARY DISCHARGE DIAGNOSES: 1. Mild to moderate dementia. 2. Hypothyroidism with normal TSH. HOSPITAL IMAGIN. CT of the brain shows no acute pathology. 2. Chest x-ray shows no acute disease. DISCHARGE MEDICATIONS: 1. Acetaminophen 325 mg p.o. q.6 hours as needed for pain or fever. 2. Albuterol sulfate one puff inhaled twice daily as needed for shortness of breath. 3. Tessalon Perles 100 mg p.o. b.i.d. 4. Vitamin D3 50,000 units p.o. monthly. 5. Docusate 200 mg p.o. daily. 6. Aricept 10 mg p.o. daily. 7. Lexapro 20 mg p.o. daily. 8. Guaifenesin 5 ml q.6 hours as needed for cough. 9. Levothyroxine 50 mcg p.o. daily. 10. Magnesium Hydroxide 30 ml p.o. daily as needed for constipation. 11. Senna 2 mg p.o. daily as needed for constipation. 12. [place] 20 mg p.o. daily. 13. Prednisone in tapering dose with instructions to take 40 mg times 2 days, followed by 20 mg times 3 days, followed by 10 mg times 3 days. Medication Changes: 1. Discontinue Doxycycline. 2. Start Tessalon Perles. 3. Prednisone in tapering doses. HOSPITAL COURSE: This is an 85-year-old female who was recently hospitalized for an influenza infection and discharged on the 20 of September. The patient has been living in assisted living at [place] and returned home from her hospitalization. She continued to have a significant cough and was profoundly weak and missed several meals after returning home and fell a couple of times. The patient was started on Doxycycline approximately a week prior to this hospitalization due to her persistent cough and weakness and noted no significant improvement in her symptoms. She was also given Robitussin for her cough, also without improvement. Recommendation from her primary care provider was to transfer to the emergency department for additional evaluation. When the patient reach the emergency department, her initial labs were largely unremarkable. CBC showed no leukocytosis, hemoglobin was near baseline at 11.9 gm/dl with a normal platelet count. She was mildly hypokalemic with a potassium of 3.1. Remainder of chemistries were unremarkable. TSH was 2.05. Chest x-ray was completed which showed no acute infiltrate and lung exam had just a slight wheeze. The patient was subsequently admitted due to her profound weakness. It seemed most appropriate that her symptoms were secondary to deconditioning from her recent acute illness and a postviral cough. Her Doxycycline was discontinued. She started on cortical steroid and antitussives with improvement in her cough. She was able to ambulate with some assistance and agreement was that she would benefit from a subacute rehab stay. DISPOSITION: The patient is being discharged to [facility] for subacute rehab. She otherwise resides at [facility]. Recommend Prednisone taper as described above and scheduled Tessalon Perles. No further antibiotics are indicated at this time. AISHWARYA CASTRO CC: Dr. Johnson; [facility] * [id number]/[facility] #: [id number] [facility] HOSPITALFaiza
[2016-09-29] MEDS ORDERED: predniSONE TAB* 20 MG PO SCH (11:00)
== END 2016-09-29 12:00 | DRG 204 ==
LOC: ED 11:29 → MED 13:18 → OBSVTOIN 09-28 09:00
PROVIDERS: ADMIT Internal Medicine; ATTEND Hospitalist
DX: R05 Cough (principal); F03.90 Unspecified dementia, unspecified severity, without behavioral disturbance, psychotic disturbance, mood disturbance, and anxiety; R53.1 Weakness; E03.9 Hypothyroidism, unspecified; E87.6 Hypokalemia; W18.39XA Other fall on same level, initial encounter; F32.9 Major depressive disorder, single episode, unspecified; Z91.81 History of falling; Y92.099 Unspecified place in other non-institutional residence as the place of occurrence of the external cause; Z79.1 Long term (current) use of non-steroidal anti-inflammatories (NSAID); Z79.899 Other long term (current) drug therapy; Z88.0 Allergy status to penicillin
CPT/HCPCS: 36415; 70450; 71010; 80048; 80053; 83605; 83735; 84443; 84484; 85025; 93005; A9270-GY; G0378; G8978-GP-CJ; G8979-GP-CI; J1630; J1644; J2930; J7512